=== PATIENT | female | born 1965 | race Caucasian/White ===

== ENCOUNTER 2017-03-21 12:19 | Emergency (ER) | payer BC, SELFPAY ==
[2017-03-21 13:19] LABS: #Eosinphils 0.1 thou/uL (0.0-0.7); #Lymphocytes 1.7 thou/uL (1.20-3.40); #Monocytes 0.4 thou/uL (0.11-0.59); %Basophils 0.2 % (0.0-1.0); %Eosinophils 1.1 % (0.0-10.0); %Lymphocytes 33.2 % (21.0-51.0); %Monocytes 6.7 % (0.0-10.0); %Neutrophils 58.7 % (42.0-75.0); Hemoglobin 14.5 g/dL (12.0-16.0); Mean Corpuscular HGB CONC 33.4 g/dL (32.0-36.0); Mean Corpuscular Hemoglobin 31.5 pg (27.0-31.0); Mean Corpuscular Volume 94.4 fl (81.0-99.0); Mean Platelet Volume 7.4 fL (7.4-10.4); Platelet Count 245 thou/uL (130-400); RBC Distribution Width 12.7 % (11.5-14.5); Red Blood Cell (RBC) Count 4.61 mill/uL (4.20-5.40); White Blood Cell (WBC) Count 5.2 thou/uL (4.8-10.8)
[2017-03-21 13:41] LABS: ALT (SGPT) 19 U/L (8-55); AST (SGOT) 17 U/L (5-34); Albumin 4.6 g/dL (3.5-5.0); Alkaline Phosphatase 88 U/L (40-150); Anion Gap 15 mmol/L (10-20); BUN (Urea Nitrogen) 17 mg/dL (9.8-20.1); Bilirubin, Total 0.7 mg/dL (0.2-1.2); Calc. Creatinine Clearance 0 mL/min (70-130); Calcium 9.7 mg/dL (7.8-10.44); Carbon Dioxide 24 mmol/L (22-29); Chloride 102 mmol/L (98-107); Estimated GFR-MDRD 58; Globulin 3.1 g/dL (2.4-3.5); Glucose 98 mg/dL (70-105); Potassium 4.6 mmol/L (3.5-5.1); Protein, Total 7.7 g/dL (6.0-8.3); Sodium 136 mmol/L (136-145)
[2017-03-21 14:40] LABS: Bilirubin Negative (Negative); Blood, Urine Small (Negative); Clarity TURBID (Clear); Glucose, Urine (Dipstick) Negative (Negative); Leukocyte Large (Negative); Nitrite Positive (Negative); Protein, Urine (Dipstick) 30 mg/dL (Neg-Trace); Specific Gravity, Urine 1.029 (1.002-1.036); Urobilinogen 0.2 mg/dL (0.2-1.0); pH, Urine 5.5 (5.0-9.0)
[2017-03-21 14:42] LABS: Bacteria/HPF 4+ HPF (None Seen); Hyaline Casts/LPF 0-3 HYALINE CAST LPF (0-3 Hyaline); Pathc Cast-AUWi Flag 0.94 (0-2.49)
[2017-03-21 14:46] LABS: Yeast-AUWi Flag 110.1 (0-25.0)
[2017-03-21 14:59] LABS: Yeast-All Forms None Seen HPF (None Seen)
[2017-03-21] MEDS ORDERED: Ondansetron ODT 4 MG TAB ONE (16:18)
== END 2017-03-21 16:20 | disposition home or self-care (01) ==
LOC: ERS 12:19
DX: N39.0 Urinary tract infection, site not specified (principal); F41.9 Anxiety disorder, unspecified; F32.9 Major depressive disorder, single episode, unspecified; I10 Essential (primary) hypertension; F17.210 Nicotine dependence, cigarettes, uncomplicated
CPT/HCPCS: 36415; 80053; 81003; 81015; 85025; 87804; 99283; Q0162

== ENCOUNTER 2017-08-20 12:23 | Emergency (ER) | payer BC | END 2017-08-20 13:03 | disposition home or self-care (01) | LOC: SCSER 12:23 | DX: F11.20 Opioid dependence, uncomplicated (principal); Z71.6 Tobacco abuse counseling; I12.9 Hypertensive chronic kidney disease with stage 1 through stage 4 chronic kidney disease, or unspecified chronic kidney disease; N18.9 Chronic kidney disease, unspecified; F43.10 Post-traumatic stress disorder, unspecified; F41.9 Anxiety disorder, unspecified; F32.9 Major depressive disorder, single episode, unspecified; F17.210 Nicotine dependence, cigarettes, uncomplicated | CPT/HCPCS: 99406 ==

== ENCOUNTER 2020-05-08 08:58 | Inpatient (IN) | payer BC, SELFPAY ==
[2020-05-08] MEDS ORDERED: Lorazepam 2 MG/ML VIAL ONE (09:37)
[2020-05-08 09:47] LABS: #Basophils 0.1 thou/uL (0.0-0.2); #Eosinphils 0.1 thou/uL (0.0-0.7); #Lymphocytes 2.1 thou/uL (1.20-3.40); #Monocytes 0.9 thou/uL (0.11-0.59); #Neutrophils 9.6 thou/uL (1.40-6.50); %Basophils 0.5 % (0.0-1.0); %Eosinophils 0.5 % (0.0-10.0); %Lymphocytes 16.3 % (21.0-51.0); %Neutrophils 75.7 % (42.0-75.0); Hemoglobin 12.1 g/dL (12.0-16.0); Mean Corpuscular Volume 84.5 fL (78.0-98.0); Platelet Count 302 thou/uL (130-400); RBC Distribution Width 14.8 % (11.5-14.5); Red Blood Cell (RBC) Count 4.48 mill/uL (4.20-5.40); White Blood Cell (WBC) Count 12.7 thou/uL (4.8-10.8)
[2020-05-08 10:09] LABS: ALT (SGPT) 19 U/L (8-55); AST (SGOT) 30 U/L (5-34); Albumin 4.4 g/dL (3.5-5.0); Alkaline Phosphatase 105 U/L (40-110); Anion Gap 23 mmol/L (10-20); BUN (Urea Nitrogen) 57 mg/dL (9.8-20.1); Bilirubin, Total 0.6 mg/dL (0.2-1.2); Calc. Creatinine Clearance 0 mL/min (70-130); Calcium 8.3 mg/dL (7.8-10.44); Carbon Dioxide 25 mmol/L (22-29); Chloride 92 mmol/L (98-107); Globulin 3.4 g/dL (2.4-3.5); Glucose 102 mg/dL (70-105); Potassium 4.3 mmol/L (3.5-5.1); Protein, Total 7.8 g/dL (6.0-8.3); Sodium 136 mmol/L (136-145)
--- NOTE | 2020-05-08 11:19 | RAD ---
CHEST 1 VIEW: HISTORY: Dyspnea. COMPARISON: 04/18/2015 exam. FINDINGS: Heart size is upper limits of normal. Mediastinal structures are unremarkable. Lungs are clear of a ny infiltrative process. There are no signs of failure. IMPRESSION: No active intrathoracic disease. POS: JUAN MANUEL
[2020-05-08 11:25] LABS: Lactic Acid 0.9 mmol/L (0.5-2.2)
[2020-05-08 11:37] LABS: Acetaminophen Less than 6.0 mcg/mL (10.0-30.0); Alcohol Less than 10 mg/dL (Less than 10); Salicylate Less than 8.0 mg/dL (15.0-30.0)
--- NOTE | 2020-05-08 11:37 | ULT ---
RENAL ULTRASOUND: HISTORY: Renal failure. FINDINGS: Real-time imaging of the right and left kidneys was performed. The right kidney measures 11.2 and th e left kidney 11.3 cm in size. No cyst, mass, or obstruction. Bladder region is unremarkable. Exam is limited due to body habitus. IMPRESSION: 1. Unremarkable renal ultrasound. 2. Incidental note made of fatty change of the liver. POS: JUAN MANUEL
[2020-05-08] MEDS ORDERED: Acetaminophen 650 MG Suppository PR PRN (11:46)
[2020-05-08] MEDS ORDERED: Lorazepam 2 MG/ML VIAL SLOW IVP PRN (11:48)
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
[2020-05-08] MEDS ORDERED: Sodium Chloride 0.9% 1,000 ML IV SCH (12:15)
--- NOTE | 2020-05-08 12:57 | CON ---
DATE OF CONSULTATION: 05/08/2020 CONSULTING PHYSICIAN: Joann Chacko PA-C. REASON FOR CONSULTATION: Acute kidney injury. REASON FOR ADMISSION: Anxiety. HISTORY OF PRESENT ILLNESS: This is a 55-year-old female with history of anxiety, hypertension, and PTSD, came to the hospital with anxiety and tremor. She was found to have acute kidney injury. She had kidney issues in the past, but not have regular followup. No fever or chills. No nausea or vomiting. PAST MEDICAL HISTORY: Positive for hypertension, anxiety, and PTSD. PAST SURGICAL HISTORY: Bilateral knee replacement, bilateral shoulder surgery, ablation, bladder sling surgery, requiring orthopedic surgery. HOME MEDICATIONS: Reviewed. ALLERGIES: NO KNOWN DRUG ALLERGIES. SOCIAL HISTORY: She smokes one pack per day. No alcohol or drug abuse. FAMILY HISTORY: Positive for diabetes. REVIEW OF SYSTEMS: CONSTITUTIONAL: Negative for weight loss or gain, ability to conduct usual activities. SKIN: Negative for rash, itching. EYES: Negative for double vision, pain. ENT/MOUTH: Negative for nose bleeding, neck stiffness, pain, tenderness. CARDIOVASCULAR: Negative for palpitations, dyspnea on exertion, orthopnea. RESPIRATORY: Negative for shortness of breath, wheezing, cough, hemoptysis, fever or night sweats. GASTROINTESTINAL: Negative for poor appetite, abdominal pain, heartburn, nausea, vomiting, constipation, or diarrhea. GENITOURINARY: Negative for urgency, frequency, dysuria, nocturia. MUSCULOSKELETAL: Negative for pain, swelling. NEUROLOGIC/PSYCHIATRIC: Negative for anxiety, depression. ALLERGY/IMMUNOLOGIC: Negative for skin rash, bleeding tendency. PHYSICAL EXAMINATION: GENERAL: This is an obese female, in no apparent distress. VITAL SIGNS: Reviewed. HEENT: Atraumatic and normocephalic. Oral mucosa moist. NECK: Supple. CV: S1 and S2, rate and rhythm regular . RESPIRATORY: Clear. MUSCULOSKELETAL: No tenderness. No edema. DERMATOLOGIC: No skin rash. NEUROLOGIC: Alert and awake. PSYCHIATRIC: Mood and affect normal LABORATORY DATA: Hemoglobin 12.1. Potassium is 4.3, BUN is 57, creatinine is 8.6. ASSESSMENT AND PLAN: 1. Acute kidney injury on chronic kidney disease stage 4 versus worsening of the chronic kidney disease, baseline not available. Plan is to start hydration. Avoid nephrotoxins. Renally dose the medications. We will check renal ultrasound and monitor labs. 2. History of hypertension. 3. Morbid obesity. 4. Edema. 5. Mild anemia. I will check chronic kidney disease labs. Check renal ultrasound. Continue hydration. We will follow. Thank you for the consult. Job ID: [id number]
[2020-05-08] MEDS ORDERED: Lorazepam 1 MG TAB ONE (13:52)
[2020-05-08] MEDS: Sodium Chloride 0.9% 1,000 ML IV SCH ×2 (13:58→20:16)
[2020-05-08] MEDS: Lorazepam 1 MG TAB PO PRN ×3 (13:59→21:43)
[2020-05-08 14:03] LABS: Bilirubin Negative (Negative); Blood, Urine 1+ (Negative); Clarity Extra Turbid (Clear); Glucose, Urine (Dipstick) Normal (Negative); Ketone, Urine Negative (Negative); Leukocyte 500 Leu/uL (Negative); Nitrite Negative (Negative); Protein, Urine (Dipstick) 70 mg/dL (Neg-Trace); Specific Gravity, Urine 1.016 (1.002-1.036); Squamous Epithelial Greater than 50 HPF (0-3); Urobilinogen Normal mg/dL (Less than 2); WBC/HPF Greater than 50 HPF (0-3); pH, Urine 5.5 (5.0-9.0)
[2020-05-08 14:04] LABS: Bacteria/HPF 3+ HPF (None Seen)
[2020-05-08] MEDS: Heparin 5,000 UNITS/ML VIAL SC SCH ×2 (15:00→20:14)
[2020-05-08 15:09] LABS: ANA Symphony (Qualitative) Negative (Negative); ANA Symphony (Quantitative) 0.3 Ratio (< 0.7 Negative); dsDNA IgG Antibody Less than 0.5 IU/mL (<10 Negative)
[2020-05-08 17:07] VITALS: BMI 46.1
[2020-05-08 19:28] LABS: Bilirubin Negative (Negative); Blood, Urine 1+ (Negative); Clarity Clear (Clear); Glucose, Urine (Dipstick) Normal (Negative); Ketone, Urine Negative (Negative); Leukocyte Negative Leu/uL (Negative); Nitrite Negative (Negative); Protein, Urine (Dipstick) 50 mg/dL (Neg-Trace); RBC/HPF 0-3 HPF (0-3); Specific Gravity, Urine 1.017 (1.002-1.036); Squamous Epithelial 0-3 HPF (0-3); Urobilinogen Normal mg/dL (Less than 2); WBC/HPF 0-3 HPF (0-3); pH, Urine 5.5 (5.0-9.0)
[2020-05-08 19:40] LABS: Bacteria/HPF 1+ HPF (None Seen)
[2020-05-08 19:41] LABS: Amphetamine Not Detected (NotDetected); Barbiturates Screen Not Detected (NotDetected); Benzodiazepine Screen Detected (NotDetected); Cocaine Metabolite Screen Not Detected (NotDetected); Medtox Control Line Valid? VALID (VALID); Medtox Reader # READER 4; Methadone Not Detected (NotDetected); Methamphetamine Not Detected (NotDetected); Opiate Screen Detected (NotDetected); Oxycodone Screen Not Detected (NotDetected); Phencyclidine (PCP) Not Detected (NotDetected); THC/Cannabinoid Screen Not Detected (NotDetected); Tricyclic Screen Detected (NotDetected); Urine Culture Reflex Yes Yes
[2020-05-08 19:56] LABS: Potassium, Urine 34.3 mmol/L
[2020-05-08] MEDS: Acetaminophen 325 MG TAB PO PRN (20:13)
[2020-05-08 22:23] LABS: SARS-CoV-2 PCR by NAA Not Detected (NotDetected)
[2020-05-08] MEDS ORDERED: Zolpidem Tartrate 5 MG TAB PO SCH (22:30)
[2020-05-09] MEDS: Sodium Chloride 0.9% 1,000 ML IV SCH ×5 (00:21→16:58)
[2020-05-09] MEDS: Lorazepam 1 MG TAB PO PRN ×5 (02:43→20:20)
[2020-05-09] MEDS: Acetaminophen 325 MG TAB PO PRN ×4 (02:43→20:30)
[2020-05-09] MEDS: traMADol HCl 50 MG TAB PO PRN ×2 (06:35→14:50)
[2020-05-09 09:13] LABS: #Eosinphils 0.1 thou/uL (0.0-0.7); #Lymphocytes 1.6 thou/uL (1.20-3.40); #Monocytes 0.5 thou/uL (0.11-0.59); #Neutrophils 4.4 thou/uL (1.40-6.50); %Basophils 0.7 % (0.0-1.0); %Eosinophils 1.1 % (0.0-10.0); %Lymphocytes 23.4 % (21.0-51.0); %Monocytes 7.8 % (0.0-10.0); Hemoglobin 11.2 g/dL (12.0-16.0); Mean Corpuscular HGB CONC 32.5 g/dL (32.0-36.0); Mean Corpuscular Hemoglobin 27.9 pg (27.0-31.0); Mean Corpuscular Volume 85.6 fL (78.0-98.0); Mean Platelet Volume 8.1 fL (7.4-10.4); Platelet Count 233 thou/uL (130-400); RBC Distribution Width 14.6 % (11.5-14.5); Red Blood Cell (RBC) Count 4.02 mill/uL (4.20-5.40); White Blood Cell (WBC) Count 6.6 thou/uL (4.8-10.8)
[2020-05-09 09:35] LABS: Anion Gap 13 mmol/L (10-20); BUN (Urea Nitrogen) 45 mg/dL (9.8-20.1); Calc. Creatinine Clearance 39 mL/min (70-130); Calcium 7.9 mg/dL (7.8-10.44); Carbon Dioxide 27 mmol/L (22-29); Chloride 103 mmol/L (98-107); Glucose 100 mg/dL (70-105); Potassium 4.7 mmol/L (3.5-5.1); Sodium 138 mmol/L (136-145)
[2020-05-09] MEDS ORDERED: Metoclopramide HCl 10 MG TAB PO SCH (10:00)
[2020-05-09] MEDS ORDERED: diphenhydrAMINE 12.5 MG/5 ML UDCUP PO SCH (10:00)
--- NOTE | 2020-05-09 10:26 | PDOC.HOSPP ---
- Subjective Encounter Date: 05/09/20 Encounter Time: 08:00 Subjective: Patient states she is feeling better this morning. Denies overnight events. Reports she still has a frontal headache and the ativan is helping with her anxiety. - Objective Vital Signs & Weight: Vital Signs (12 hours) Temp Pulse Resp BP BP BP Pulse Ox 05/09/20 08:00 97.7 F 89 20 136/87 95 05/09/20 06:03 97 05/09/20 05:36 87 L 05/09/20 04:55 98.1 F 87 14 166/100 H 96 05/09/20 00:20 98.6 F 87 14 127/71 97 Weight Weight 141.793 kg I&O: 05/08/20 05/09/20 05/10/20 06:59 06:59 06:59 Intake Total 3322 Balance 3322 Result Diagrams: 05/09/20 08:50 05/09/20 08:50 Hospitalist ROS - Review of Systems Constitutional: denies: fever, chills, sweats, weakness, malaise, other Eyes: denies: pain, vision change, conjunctivae inflammation, eyelid inflammation, redness, other ENT: denies: ear pain, ear discharge, nose pain, nose discharge, nose congestion, mouth pain, mouth swelling, throat pain, throat swelling, other Respiratory: denies: cough, dry, shortness of breath, hemoptysis, SOB with excertion, pleuritic pain, sputum, wheezing, other Cardiovascular: denies: chest pain, palpitations, orthopnea, paroxysmal noc. dyspnea, edema, light headedness, other Gastrointestinal: denies: nausea, vomiting, abdominal pain, diarrhea, constipation, melena, hematochezia, other Genitourinary: denies: dysuria, frequency, incontinence, hematuria, retention, other Musculoskeletal: denies: neck pain, shoulder pain, arm pain, back pain, hand pain, leg pain, foot pain, other Skin: denies: rash, lesions, winnie, bruising, other Neurological: reports: other (reports frontal headache) - Medication Medications: Active Medications Generic Name Dose Route Start Last Admin Trade Name Freq PRN Reason Stop Dose Admin Acetaminophen 650 mg 05/08/20 11:46 05/09/20 06:35 Acetaminophen 325 Mg Tab PO 650 mg Q4H PRN Administration Headache/Fever/Mild Pain (1-3) Heparin Sodium (Porcine) 5,000 units 05/08/20 15:00 05/08/20 20:14 Heparin 5,000 Units/Ml Vial SC 5,000 units TID LORI Administration Sodium Chloride 1,000 mls @ 200 mls/hr 05/08/20 13:55 05/09/20 05:23 Normal Saline 0.9% IV 1,000 mls .Q5H LORI Administration Lorazepam 1 mg 05/08/20 13:52 05/09/20 06:35 Lorazepam 1 Mg Tab PO 1 mg Q4H PRN Administration Anxiety/Agitation Tramadol HCl 50 mg 05/09/20 05:23 05/09/20 06:35 Tramadol Hcl 50 Mg Tab PO 50 mg Q6H PRN Administration Moderate Pain (4-6) Hospitalist Exam Vitals: Vital Signs (12 hours) Temp Pulse Resp BP BP BP Pulse Ox 05/09/20 08:00 97.7 F 89 20 136/87 95 05/09/20 06:03 97 05/09/20 05:36 87 L 05/09/20 04:55 98.1 F 87 14 166/100 H 96 05/09/20 00:20 98.6 F 87 14 127/71 97 Weight Weight 141.793 kg General Appearance: NAD, awake alert Eye: PERRL ENT: normocephalic atraumatic Neck: supple, no JVD Heart: RRR Respiratory: normal chest expansion Gastrointestinal: soft, non-tender Extremities: no edema Skin: normal turgor Neurological: no focal deficits Musculoskeletal: normal tone Psychiatric: normal affect, A&O x 3 Hosp A/P (1) Acute renal failure Status: Acute (2) Anxiety Code(s): F41.9 - ANXIETY DISORDER, UNSPECIFIED Status: Chronic (3) Leukocytosis Code(s): D72.829 - ELEVATED WHITE BLOOD CELL COUNT, UNSPECIFIED Status: Acute (4) Hypertension Code(s): I10 - ESSENTIAL (PRIMARY) HYPERTENSION Status: Chronic (5) Sinus headache Code(s): R51.9 - HEADACHE, UNSPECIFIED Status: Acute - Plan Plan: 55-year-old female with a history of anxiety, hypertension, PTSD presents with anxiety attack and full body tremor found to be in acute renal failure of unknown etiology. Acute renal failure Dr. Rogel is following BUN/CR is improving today after hydration Renal U/S unremarkable Continue IV fluids Repeat labs Leukocytosis Resolved; Urine culture is pending Anxiety PTSD Continue Ativan as needed Continue home Zoloft, Seroquel Hypertension We will hold home lisinopril in setting of ROSANA. Headache Patient c/o of a frontal headache Will order Flonase One dose of benadryl/reglan to see if it helps DVT prophylaxisSQ heparin Full code Case discussed with attending physician, Dr. Izquierdo
[2020-05-09] MEDS: Heparin 5,000 UNITS/ML VIAL SC SCH ×3 (10:57→20:22)
--- NOTE | 2020-05-09 17:09 | PRG ---
DATE OF SERVICE: 05/09/2020 SUBJECTIVE: Patient was seen and examined at bedside and overnight events noted. Patient denies any shortness of breath or chest pain or palpitation. No history of nausea or vomiting or diarrhea or fever or chills or cramps. OBJECTIVE: GENERAL: This is a well-built female, in no apparent distress. VITAL SIGNS: Temperature 98.1. Heart rate 86. Respiratory rate 18. Blood pressure 137/79. HEENT: Atraumatic, normocephalic. Oral mucosa is moist. NECK: Supple. CARDIOVASCULAR: S1, S2 heard. Rate and rhythm regular. RESPIRATORY: Clear to auscultation. GASTROINTESTINAL: Abdomen is soft. MUSCULOSKELETAL: No tenderness. No edema. DERMATOLOGIC: No skin rash. NEUROLOGIC: Alert and awake and oriented x3. No focal neurologic deficits. Moving all the extremities. PSYCHIATRIC: Mood and affect normal. LABORATORY DATA: Potassium 4.7, BUN is 45, and creatinine is 3.6. ASSESSMENT AND PLAN: 1. Acute kidney injury on chronic kidney disease, stage 4. Renal function with much improvement and continue on hydration. 2. Edema, controlled. 3. Hypertension. 4. Morbid obesity. 5. Mild anemia. 6. Vitamin D deficiency. We will start on vitamin D. ADONIS screen is negative. Urine with no nephrotic proteinuria. We will follow. Continue hydration. Avoid nephrotoxins and we will follow renal function. Job ID: [id number]
[2020-05-09] MEDS ORDERED: FLU VACC QS2020-21(6MOS UP)/PF 60 MCG/0.5 ML SYRINGE IM ONE (17:30)
[2020-05-09] MEDS: Zolpidem Tartrate 5 MG TAB PO SCH (20:20)
[2020-05-10] MEDS: traMADol HCl 50 MG TAB PO PRN ×2 (00:21→14:58)
[2020-05-10] MEDS: Lorazepam 1 MG TAB PO PRN ×6 (00:22→21:02)
[2020-05-10] MEDS: Sodium Chloride 0.9% 1,000 ML IV SCH ×3 (00:23→21:01)
[2020-05-10 05:25] LABS: #Eosinphils 0.1 thou/uL (0.0-0.7); #Lymphocytes 2.2 thou/uL (1.20-3.40); #Monocytes 0.5 thou/uL (0.11-0.59); #Neutrophils 3.4 thou/uL (1.40-6.50); %Basophils 0.6 % (0.0-1.0); %Eosinophils 1.6 % (0.0-10.0); %Lymphocytes 35.2 % (21.0-51.0); %Monocytes 8.1 % (0.0-10.0); %Neutrophils 54.6 % (42.0-75.0); Hemoglobin 10.7 g/dL (12.0-16.0); Mean Corpuscular HGB CONC 31.7 g/dL (32.0-36.0); Mean Corpuscular Hemoglobin 27.2 pg (27.0-31.0); Mean Corpuscular Volume 85.6 fL (78.0-98.0); Mean Platelet Volume 7.6 fL (7.4-10.4); Platelet Count 249 thou/uL (130-400); RBC Distribution Width 14.6 % (11.5-14.5); Red Blood Cell (RBC) Count 3.95 mill/uL (4.20-5.40); White Blood Cell (WBC) Count 6.1 thou/uL (4.8-10.8)
[2020-05-10 05:48] LABS: Anion Gap 13 mmol/L (10-20); BUN (Urea Nitrogen) 27 mg/dL (9.8-20.1); Calc. Creatinine Clearance 88 mL/min (70-130); Calcium 7.9 mg/dL (7.8-10.44); Carbon Dioxide 25 mmol/L (22-29); Chloride 104 mmol/L (98-107); Glucose 92 mg/dL (70-105); Potassium 4.3 mmol/L (3.5-5.1); Sodium 138 mmol/L (136-145)
--- NOTE | 2020-05-10 07:30 | PDOC.HOSPP ---
- Subjective Encounter Date: 05/10/20 Encounter Time: 08:40 Subjective: Patient laying in bed watching TV, alert and oriented. States she didn't sleep well due to almost pulling her IV out of her right hand, IV is still in place and no sign of swelling noted. Reports she still has a frontal headache, requesting something for pain and requests Ativan for anxiety. Patient states she takes Lisinopril 10mg for HTN at home, discussed resuming home medication for blood pressure. - Objective Vital Signs & Weight: Vital Signs (12 hours) Temp Pulse Resp BP Pulse Ox 05/10/20 04:09 97 05/09/20 20:00 98.1 F 84 20 140/83 97 Weight Weight 312 lb 9.6 oz I&O: 05/09/20 05/10/20 05/11/20 06:59 06:59 06:59 Intake Total 3322 Balance 3322 Result Diagrams: 05/10/20 05:19 05/10/20 05:19 Hospitalist ROS - Review of Systems Constitutional: denies: fever, chills, sweats, weakness, malaise Eyes: denies: pain, vision change, conjunctivae inflammation, eyelid inflammation, redness ENT: denies: ear pain, ear discharge, nose pain, nose discharge, nose congestion, mouth pain, mouth swelling, throat pain, throat swelling Respiratory: denies: cough, dry, shortness of breath, hemoptysis, SOB with excertion, pleuritic pain, sputum, wheezing Cardiovascular: denies: chest pain, palpitations, orthopnea, paroxysmal noc. dyspnea, edema, light headedness Gastrointestinal: reports: nausea. denies: vomiting, abdominal pain, diarrhea, constipation, melena, hematochezia Genitourinary: denies: dysuria, frequency, incontinence, hematuria, retention Musculoskeletal: denies: neck pain, shoulder pain, arm pain, back pain, hand pain, leg pain, foot pain Skin: denies: rash, lesions, winnie, bruising Neurological: reports: other (patient c/o frontal headache). denies: weakness, numbness, incoordination, change in speech, confusion, seizures All other systems reviewed; all pertinent +/- noted in HPI/Subj - Medication Medications: Active Medications Generic Name Dose Route Start Last Admin Trade Name Freq PRN Reason Stop Dose Admin Acetaminophen 650 mg 05/08/20 11:46 05/09/20 20:30 Acetaminophen 325 Mg Tab PO 650 mg Q4H PRN Administration Headache/Fever/Mild Pain (1-3) Heparin Sodium (Porcine) 5,000 units 05/08/20 15:00 05/09/20 20:22 Heparin 5,000 Units/Ml Vial SC 5,000 units TID LORI Administration Sodium Chloride 1,000 mls @ 100 mls/hr 05/09/20 16:45 05/10/20 00:23 Normal Saline 0.9% IV 1,000 mls .Q10H LORI Administration Lorazepam 1 mg 05/08/20 13:52 05/10/20 04:38 Lorazepam 1 Mg Tab PO 1 mg Q4H PRN Administration Anxiety/Agitation Tramadol HCl 50 mg 05/09/20 05:23 05/10/20 00:21 Tramadol Hcl 50 Mg Tab PO 50 mg Q6H PRN Administration Moderate Pain (4-6) Zolpidem Tartrate 10 mg 05/09/20 21:00 05/09/20 20:20 Zolpidem Tartrate 5 Mg Tab PO 10 mg HS LORI Administration Hospitalist Exam Vitals: Vital Signs (12 hours) Temp Pulse Resp BP Pulse Ox 05/10/20 04:09 97 05/09/20 20:00 98.1 F 84 20 140/83 97 Weight Weight 312 lb 9.6 oz General Appearance: NAD, awake alert Eye: PERRL ENT: normocephalic atraumatic, moist mucosa Neck: supple, symmetric, no JVD, no lymphadenopathy Heart: RRR, normal peripheral pulses Respiratory: CTAB, normal chest expansion, no tachypnea Gastrointestinal: soft, non-tender, normal bowel sounds Extremities: no edema Skin: normal turgor, no rashes Neurological: cranial nerve grossly intact, normal sensation to touch, no weakness, no focal deficits, no new deficit Musculoskeletal: normal tone Psychiatric: normal affect, A&O x 3 Hosp A/P (1) Acute renal failure Status: Acute (2) Leukocytosis Code(s): D72.829 - ELEVATED WHITE BLOOD CELL COUNT, UNSPECIFIED Status: Acute (3) Anxiety Code(s): F41.9 - ANXIETY DISORDER, UNSPECIFIED Status: Chronic (4) Hypertension Code(s): I10 - ESSENTIAL (PRIMARY) HYPERTENSION Status: Chronic (5) Sinus headache Code(s): R51.9 - HEADACHE, UNSPECIFIED Status: Acute - Plan Plan: 55-year-old female with a history of anxiety, hypertension, PTSD presents with anxiety attack and full body tremor found to be in acute renal failure of unknown etiology. Acute renal failure -Dr. Rogel is following -BUN/CR is improving today after hydration -Renal U/S unremarkable -Continue IV fluids -Repeat labs Leukocytosis -Resolved -Urine culture is pending Anxiety PTSD Continue Ativan as needed Continue home Zoloft, Seroquel Hypertension -Resume Lisinopril 10mg once daily due to improvement in kidney function. Headache -Patient c/o of a frontal headache, states it comes and goes. -Flonase ordered -Tramadol and Tylenol ordered for pain DVT prophylaxisSQ heparin Full code Case discussed with attending physician, Dr. Izquierdo
[2020-05-10] MEDS: Acetaminophen 325 MG TAB PO PRN ×3 (08:35→20:36)
[2020-05-10] MEDS: Heparin 5,000 UNITS/ML VIAL SC SCH ×3 (08:35→20:35)
[2020-05-10] MEDS: Fluticasone Propionate Nasal Spray 16 gm Bottle NASAL SCH (08:53)
[2020-05-10] MEDS: Ondansetron PF 4 MG/2 ML Vial IVP PRN ×2 (08:56→14:57)
[2020-05-10] MEDS: Lisinopril 10 MG TAB PO SCH (08:57)
--- NOTE | 2020-05-10 13:52 | PRG ---
DATE OF SERVICE: 05/10/2020 SUBJECTIVE: Patient was seen and examined at bedside and overnight events noted. Patient denies any shortness of breath or chest pain or palpitation. No history of nausea or vomiting or diarrhea or fever or chills or cramps. OBJECTIVE: GENERAL: This is a well built female, in no apparent distress. VITAL SIGNS: Temperature 98.1, pulse 67, . HEENT: Atraumatic, normocephalic. Oral mucosa is moist. NECK: Supple. CARDIOVASCULAR: S1, S2 heard. Rate and rhythm regular. RESPIRATORY: Clear to auscultation. GASTROINTESTINAL: Abdomen is soft. MUSCULOSKELETAL: No tenderness. No edema. DERMATOLOGIC: No skin rash. NEUROLOGIC: Alert and awake and oriented x3. No focal neurologic deficits. Moving all the extremities. PSYCHIATRIC: Mood and affect normal. LABORATORY DATA: Potassium 4.3, BUN is 27, creatinine is 1.66. ASSESSMENT AND PLAN: 1. Acute kidney injury on chronic kidney stage, 4. Labs are much better. 2. Slight edema. 3. Hypertension. 4. Morbid obesity. 5. Mild anemia. 6. Vitamin D deficiency. 7. Labs are much better avoid, nephrotoxins. I will sign off. Please call back with any questions. Continue IV fluids for one more day. Job ID: [id number]
[2020-05-10] MEDS: Zolpidem Tartrate 5 MG TAB PO SCH (20:36)
[2020-05-11] MEDS: Lorazepam 1 MG TAB PO PRN ×3 (01:47→12:13)
[2020-05-11] MEDS: Acetaminophen 325 MG TAB PO PRN ×3 (01:50→12:12)
[2020-05-11 05:25] LABS: #Eosinphils 0.1 thou/uL (0.0-0.7); #Lymphocytes 2.7 thou/uL (1.20-3.40); #Monocytes 0.6 thou/uL (0.11-0.59); #Neutrophils 3.3 thou/uL (1.40-6.50); %Basophils 0.6 % (0.0-1.0); %Eosinophils 1.9 % (0.0-10.0); %Lymphocytes 40.3 % (21.0-51.0); %Monocytes 8.9 % (0.0-10.0); %Neutrophils 48.3 % (42.0-75.0); Hemoglobin 10.5 g/dL (12.0-16.0); Mean Corpuscular Hemoglobin 28.1 pg (27.0-31.0); Mean Platelet Volume 7.9 fL (7.4-10.4); Platelet Count 231 thou/uL (130-400); RBC Distribution Width 14.9 % (11.5-14.5); Red Blood Cell (RBC) Count 3.73 mill/uL (4.20-5.40); White Blood Cell (WBC) Count 6.8 thou/uL (4.8-10.8)
[2020-05-11 05:46] LABS: Anion Gap 12 mmol/L (10-20); BUN (Urea Nitrogen) 18 mg/dL (9.8-20.1); Calc. Creatinine Clearance 105 mL/min (70-130); Calcium 7.5 mg/dL (7.8-10.44); Carbon Dioxide 25 mmol/L (22-29); Chloride 106 mmol/L (98-107); Glucose 92 mg/dL (70-105); Potassium 4.1 mmol/L (3.5-5.1); Sodium 139 mmol/L (136-145)
--- NOTE | 2020-05-11 07:41 | PDOC.HOSPP ---
- Subjective Encounter Date: 05/11/20 Encounter Time: 10:00 Subjective: Patient still with some anxiety symptoms improved with Ativan. No other complaints. Ready to go home. - Objective Vital Signs & Weight: Vital Signs (12 hours) Temp Pulse Resp BP Pulse Ox 05/11/20 01:55 96 05/10/20 20:35 96 05/10/20 20:00 98.1 F 88 18 155/70 H 96 Weight Weight 312 lb 9.6 oz I&O: 05/10/20 05/11/20 05/12/20 06:59 06:59 06:59 Intake Total 1000 Balance 1000 Result Diagrams: 05/11/20 05:09 05/11/20 05:09 Hospitalist ROS - Review of Systems Constitutional: denies: fever, chills Respiratory: denies: cough, shortness of breath Cardiovascular: denies: chest pain, palpitations Gastrointestinal: denies: nausea, vomiting, abdominal pain, diarrhea, constipation Genitourinary: denies: dysuria, hematuria - Medication Medications: Active Medications Generic Name Dose Route Start Last Admin Trade Name Freq PRN Reason Stop Dose Admin Acetaminophen 650 mg 05/08/20 11:46 05/11/20 01:50 Acetaminophen 325 Mg Tab PO 650 mg Q4H PRN Administration Headache/Fever/Mild Pain (1-3) Fluticasone Propionate 1 gm 05/10/20 09:00 05/10/20 08:53 Fluticasone Propionate Nasal [place] 16 Gm Bottle NASAL Not Given DAILY LORI Heparin Sodium (Porcine) 5,000 units 05/08/20 15:00 05/10/20 20:35 Heparin 5,000 Units/Ml Vial SC 5,000 units TID LORI Administration Sodium Chloride 1,000 mls @ 50 mls/hr 05/10/20 11:44 05/10/20 21:01 Normal Saline 0.9% IV 1,000 mls .Q20H LORI Administration Lisinopril 10 mg 05/10/20 09:00 05/10/20 08:57 Lisinopril 10 Mg Tab PO 10 mg DAILY LORI Administration Lorazepam 1 mg 05/08/20 13:52 05/11/20 01:47 Lorazepam 1 Mg Tab PO 1 mg Q4H PRN Administration Anxiety/Agitation Ondansetron HCl 4 mg 05/10/20 08:37 05/10/20 14:57 Ondansetron Pf 4 Mg/2 Ml Vial IVP 4 mg Q6H PRN Administration Nausea/Vomiting Tramadol HCl 50 mg 05/09/20 05:23 05/10/20 14:58 Tramadol Hcl 50 Mg Tab PO 50 mg Q6H PRN Administration Moderate Pain (4-6) Zolpidem Tartrate 10 mg 05/09/20 21:00 05/10/20 20:36 Zolpidem Tartrate 5 Mg Tab PO 10 mg HS LORI Administration Hospitalist Exam Vitals: Vital Signs (12 hours) Temp Pulse Resp BP Pulse Ox 05/11/20 01:55 96 05/10/20 20:35 96 05/10/20 20:00 98.1 F 88 18 155/70 H 96 Weight Weight 312 lb 9.6 oz General Appearance: NAD, awake alert ENT: moist mucosa Heart: RRR, no murmur, no gallops, no rubs Respiratory: CTAB, no wheezes, no rales, no ronchi Gastrointestinal: soft, non-tender, non-distended, normal bowel sounds Extremities: no edema Psychiatric: normal affect, normal behavior, A&O x 3 Hosp A/P - Plan 55-year-old female with a history of anxiety, hypertension, PTSD presents with anxiety attack and full body tremor found to be in acute renal failure of unknown etiology. Acute renal failure -Dr. Rogel consulted, now signed off -Renal U/S unremarkable -Continued IV fluids -Repeat labs show marked improvement Leukocytosis -Resolved -Urine culture is pending Anxiety PTSD Continue Ativan as needed Continue home Zoloft, Seroquel Hypertension -Resume Lisinopril 10mg once daily due to improvement in kidney function. Headache -Patient c/o of a frontal headache, states it comes and goes. -Flonase ordered -Tramadol and Tylenol ordered for pain DVT prophylaxisSQ heparin Full code Disposition: Home today. Follow up with PCP for recheck of creatinine next week.
[2020-05-11] MEDS: Lisinopril 10 MG TAB PO SCH (08:25)
[2020-05-11] MEDS: Heparin 5,000 UNITS/ML VIAL SC SCH (08:25)
[2020-05-11] MEDS: Fluticasone Propionate Nasal Spray 16 gm Bottle NASAL SCH (08:28)
[2020-05-11] MEDS ORDERED: Ondansetron ODT 4 MG TAB PO PRN (10:41)
[2020-05-11] MEDS ORDERED: Ondansetron ODT 4 MG TAB ONE (10:42)
[2020-05-11 11:11] VITALS: BP 177/80; TEMP 98.6
--- NOTE | 2020-05-11 15:03 | PDOC.DS.DS ---
Provider Date of Admission: 05/08/20 10:55 Date of Discharge: 05/11/20 Admitting Provider: Lobo Mckeon MD Consultations: Nephrology (Dr. Rogel) Primary Care Physician: ANIYA GOYAL MD Course Hospital Course: This is a 85-year-old white female with a history of PTSD who had a panic attack and was shaking all over. In the emergency room she was found to have acute renal failure of undetermined etiology. She also had a leukocytosis however that resolved quickly with fluids; her renal failure improved with fluids also. Patient was back to her normal physical status with a markedly improved creatinine and so she is being discharged home. Pertinent Studies: RENAL ULTRASOUND: HISTORY: Renal failure. FINDINGS: Real-time imaging of the right and left kidneys was performed. The right kidney measures 11.2 and the left kidney 11.3 cm in size. No cyst, mass, or obstruction. Bladder region is unremarkable. Exam is limited due to body habitus. IMPRESSION: 1. Unremarkable renal ultrasound. 2. Incidental note made of fatty change of the liver. Resuscitation Status: 05/08/20 11:46 Resuscitation Status Routine Co-Sign Provider: Resuscitation Status: FULL: Full Resuscitation Lab Results: 05/11/20 05:09 05/11/20 05:09 Abnormal Lab Results - Last 48 hrs 05/10/20 05:19: BUN 27 H, Creatinine 1.63 H 05/10/20 05:19: RBC 3.95 L, Hgb 10.7 L, Hct 33.8 L, MCHC 31.7 L, RDW 14.6 H 05/11/20 05:09: Creatinine 1.37 H, Calcium 7.5 L 05/11/20 05:09: RBC 3.73 L, Hgb 10.5 L, Hct 31.7 L, RDW 14.9 H, Monocytes # 0.6 H Microbiology - Entire Visit 05/08/20 13:38 Urine clean catch Urine Culture - Final Vitals: Vital Signs (12 hours) Temp Pulse Resp BP BP Pulse Ox 05/11/20 08:25 146/90 H 05/11/20 08:00 98.6 F 98 18 177/80 H 97 Weight Weight 312 lb 9.6 oz Physical Exam: The patient was seen and examined on the day of discharge. Problem Assessment: Acute renal failure Leukocytosis -Resolved Anxiety PTSD Hypertension Headache resolved Plan of Treatment: Patient to be discharged home on her home medications. I will give her a few days of Ativan per her request but she needs to see her primary care doctor for any more that. She is to follow-up with her primary care doctor next week to recheck her creatinine. Time Spent in discharge related activities (mins): 32 Plan Prescriptions: Lorazepam [Ativan] 1 mg PO Q4H PRN #6 tab PRN Reason: Anxiety/Agitation Home Medications: Medication Instructions Recorded Confirmed Type Zolpidem Tartrate [Ambien] 10 mg PO HS 09/04/14 05/08/20 History Sertraline HCl [Zoloft] 25 mg PO DAILY 05/08/20 05/08/20 History Lisinopril 10 mg PO DAILY 05/10/20 05/10/20 History Lorazepam [Ativan] 1 mg PO Q4H PRN #6 tab 05/11/20 Rx Allergies: No Known Allergies Allergy (Verified 05/08/20 16:47) Activity:: Activity as Tolerated Nourishment:: Heart Healthy Diet, Low Sodium Diet Therapies:: Not Applicable Equipment/Supplies:: Not Applicable IV Therapy:: Not Applicable Referrals: ANIYA GOYAL MD [Primary Care Provider] - (Follow up BMP in 1 week) Disposition: HOME Quality CORE MEASURES:: N/A
[2020-05-14 14:15] LABS: Cytoplasmic (C-ANCA) <1:20 titer (Neg:<1:20); Myeloperoxidase AutoAbs <9.0 U/mL (0.0-9.0); Perinuclear (P-ANCA) <1:20 titer (Neg:<1:20); Proteinase-3 AutoAbs Less than 3.5 U/mL (0.0-3.5)
[2020-05-16] MEDS ORDERED: Ergocalciferol 1.25 MG(50,000 UNITS) CAP PO SCH (09:00)
== END 2020-05-11 12:34 | disposition home or self-care (01) | DRG 683 ==
LOC: ERS 08:58 → ERHOLD 10:55 → ONC 16:41
PROVIDERS: ADMIT Internal Medicine; ATTEND Emergency Medicine
DX: N17.9 Acute kidney failure, unspecified (principal); Z68.42 Body mass index [BMI] 45.0-49.9, adult; F41.9 Anxiety disorder, unspecified; F43.10 Post-traumatic stress disorder, unspecified; F17.210 Nicotine dependence, cigarettes, uncomplicated; D72.829 Elevated white blood cell count, unspecified; E86.0 Dehydration; R51.9 Headache, unspecified; Z96.653 Presence of artificial knee joint, bilateral; N18.4 Chronic kidney disease, stage 4 (severe); D64.9 Anemia, unspecified; I12.9 Hypertensive chronic kidney disease with stage 1 through stage 4 chronic kidney disease, or unspecified chronic kidney disease; E55.9 Vitamin D deficiency, unspecified; E66.01 Morbid (severe) obesity due to excess calories; Z20.822 Contact with and (suspected) exposure to COVID-19; Z79.82 Long term (current) use of aspirin
CPT/HCPCS: 36415; 71045; 76770; 80048; 80053; 80306; 80307; 81003; 81015; 82306; 82436; 82570; 83520; 83605; 83615; 83735; 83930; 83935; 83970; 84133; 84156; 84300; 85025; 86038; 86225; 86256; 87086; 87635; 96374; J1644; J2060; J2405; Q0162; U0003; U0005

== ENCOUNTER 2020-07-31 20:41 | Inpatient (IN) | payer SELFPAY ==
[2020-07-31 21:25] LABS: #Basophils 0.1 thou/uL (0.0-0.2); #Eosinphils 0.1 thou/uL (0.0-0.7); #Lymphocytes 2.6 thou/uL (1.20-3.40); #Monocytes 0.6 thou/uL (0.11-0.59); #Neutrophils 7.5 thou/uL (1.40-6.50); %Basophils 0.5 % (0.0-1.0); %Eosinophils 1.1 % (0.0-10.0); %Monocytes 5.7 % (0.0-10.0); %Neutrophils 68.7 % (42.0-75.0); Hemoglobin 12.5 g/dL (12.0-16.0); Mean Corpuscular HGB CONC 32.8 g/dL (32.0-36.0); Mean Corpuscular Hemoglobin 28.8 pg (27.0-31.0); Mean Corpuscular Volume 87.9 fL (78.0-98.0); Mean Platelet Volume 8.6 fL (7.4-10.4); Platelet Count 241 thou/uL (130-400); RBC Distribution Width 14.4 % (11.5-14.5); Red Blood Cell (RBC) Count 4.35 mill/uL (4.20-5.40); White Blood Cell (WBC) Count 10.9 thou/uL (4.8-10.8)
[2020-07-31 21:43] LABS: ALT (SGPT) 10 U/L (8-55); AST (SGOT) 12 U/L (5-34); Albumin 4.1 g/dL (3.5-5.0); Alkaline Phosphatase 86 U/L (40-110); Anion Gap 16 mmol/L (10-20); BUN (Urea Nitrogen) 16 mg/dL (9.8-20.1); Bilirubin, Total 0.6 mg/dL (0.2-1.2); CK (CPK) 55 U/L (29-168); Calc. Creatinine Clearance 0 mL/min (70-130); Calcium 9.2 mg/dL (7.8-10.44); Carbon Dioxide 28 mmol/L (22-29); Chloride 98 mmol/L (98-107); Globulin 2.4 g/dL (2.4-3.5); Glucose 138 mg/dL (70-105); Potassium 3.2 mmol/L (3.5-5.1); Protein, Total 6.5 g/dL (6.0-8.3); Sodium 139 mmol/L (136-145)
[2020-07-31 21:44] LABS: Acetaminophen Less than 6.0 mcg/mL (10.0-30.0); Alcohol Less than 10 mg/dL (Less than 10); Salicylate Less than 8.0 mg/dL (15.0-30.0)
[2020-07-31] MEDS ORDERED: Bisacodyl 10 MG SUPP PR PRN (22:43)
[2020-07-31] MEDS ORDERED: Ziprasidone 20 MG VIAL IM PRN (22:45)
[2020-07-31 22:56] LABS: Bilirubin Negative (Negative); Blood, Urine Negative (Negative); Clarity Clear (Clear); Glucose, Urine (Dipstick) Normal (Negative); Ketone, Urine Negative (Negative); Leukocyte Negative Leu/uL (Negative); Nitrite Negative (Negative); Protein, Urine (Dipstick) Negative (Neg-Trace); Specific Gravity, Urine 1.009 (1.002-1.036); Urobilinogen Normal mg/dL (Less than 2)
[2020-07-31] MEDS ORDERED: Potassium Chloride 10 MEQ in Dextrose 5%-Lactated Ringers 1,000 ML IV SCH (23:00)
[2020-07-31 23:05] LABS: Cocaine Metabolite Screen Not Detected (NotDetected); Medtox Reader # READER 1; Methamphetamine Detected (NotDetected); Phencyclidine (PCP) Not Detected (NotDetected); THC/Cannabinoid Screen Not Detected (NotDetected)
[2020-07-31 23:06] LABS: Amphetamine Not Detected (NotDetected); Barbiturates Screen Not Detected (NotDetected); Benzodiazepine Screen Not Detected (NotDetected); Medtox Control Line Valid? VALID (VALID); Methadone Not Detected (NotDetected); Opiate Screen Detected (NotDetected); Oxycodone Screen Not Detected (NotDetected); Tricyclic Screen Detected (NotDetected)
[2020-08-01 00:01] LABS: SARS-CoV-2 NAA Rapid Test Not Detected (NotDetected)
[2020-08-01 00:53] VITALS: BMI 47.2
[2020-08-01] MEDS: Lorazepam 2 MG/ML VIAL SLOW IVP PRN ×6 (01:15→23:42)
[2020-08-01] MEDS: Ondansetron PF 4 MG/2 ML Vial IVP PRN ×3 (01:25→18:37)
[2020-08-01] MEDS: Potassium Chloride 10 MEQ in Dextrose 5%-Lactated Ringers 1,000 ML IV SCH ×4 (02:01→16:52)
[2020-08-01 07:01] LABS: Mean Corpuscular HGB CONC 31.7 g/dL (32.0-36.0); Mean Corpuscular Hemoglobin 28.2 pg (27.0-31.0); Mean Corpuscular Volume 89.2 fL (78.0-98.0); Mean Platelet Volume 8.4 fL (7.4-10.4); Platelet Count 214 thou/uL (130-400); RBC Distribution Width 14.6 % (11.5-14.5); Red Blood Cell (RBC) Count 4.62 mill/uL (4.20-5.40); White Blood Cell (WBC) Count 14.6 thou/uL (4.8-10.8)
[2020-08-01 07:11] LABS: Albumin 3.7 g/dL (3.5-5.0); Anion Gap 16 mmol/L (10-20); BUN (Urea Nitrogen) 18 mg/dL (9.8-20.1); BUN/Creatinine Ratio 12.41; Calc. Creatinine Clearance 99 mL/min (70-130); Calcium 8.8 mg/dL (7.8-10.44); Carbon Dioxide 26 mmol/L (22-29); Chloride 106 mmol/L (98-107); Glucose 120 mg/dL (70-105); Potassium 4.1 mmol/L (3.5-5.1); Sodium 144 mmol/L (136-145)
[2020-08-01 07:36] LABS: Band 3 % (5-11); Lymphocytes 9 % (21-51); MDiff Complete? YES; Monocytes 3 % (0-10); Neutrophil 85 % (42-75); Platelet Morphology Comment Appears Adequate; RBC Morphology Normal
[2020-08-01] MEDS: Enoxaparin Sodium 40 MG/0.4 ML SYRINGE SC SCH (09:16)
[2020-08-01] MEDS: Famotidine 20 MG TAB PO SCH ×2 (09:25→21:34)
[2020-08-01] MEDS ORDERED: Polyethylene Glycol 3350 17 GM Packet PO SCH (10:45)
[2020-08-01] MEDS ORDERED: GoLYTELY 4,000 ml Bottle PO SCH (18:00)
[2020-08-01] MEDS ORDERED: Prevnar 13-Val Conj/PF 0.5 ML SYRINGE IM ONE (21:00)
[2020-08-01] MEDS ORDERED: hydrALAZINE 20 MG/ML VIAL SLOW IVP PRN (21:06)
[2020-08-01] MEDS ORDERED: Promethazine HCl 12.5 MG in Sodium Chloride 0.9% 50 ML IVPB SCH (21:30)
[2020-08-02] MEDS: Ondansetron PF 4 MG/2 ML Vial IVP PRN (00:59)
[2020-08-02] MEDS: Potassium Chloride 10 MEQ in Dextrose 5%-Lactated Ringers 1,000 ML IV SCH ×4 (03:29→23:47)
[2020-08-02] MEDS: Lorazepam 2 MG/ML VIAL SLOW IVP PRN ×5 (04:01→23:25)
[2020-08-02] MEDS ORDERED: Promethazine HCl 12.5 MG in Sodium Chloride 0.9% 50 ML IVPB SCH (06:00)
[2020-08-02 09:03] LABS: ALT (SGPT) 9 U/L (8-55); AST (SGOT) 15 U/L (5-34); Albumin 3.1 g/dL (3.5-5.0); Alkaline Phosphatase 76 U/L (40-110); Anion Gap 16 mmol/L (10-20); BUN (Urea Nitrogen) 12 mg/dL (9.8-20.1); Bilirubin, Total 0.9 mg/dL (0.2-1.2); Calc. Creatinine Clearance 136 mL/min (70-130); Calcium 8.8 mg/dL (7.8-10.44); Carbon Dioxide 19 mmol/L (22-29); Chloride 109 mmol/L (98-107); Globulin 2.6 g/dL (2.4-3.5); Glucose 136 mg/dL (70-105); Protein, Total 5.7 g/dL (6.0-8.3); Sodium 140 mmol/L (136-145)
[2020-08-02] MEDS: Famotidine 20 MG TAB PO SCH ×2 (09:19→21:00)
[2020-08-02] MEDS: Enoxaparin Sodium 40 MG/0.4 ML SYRINGE SC SCH (09:35)
[2020-08-02 09:49] LABS: Band 12 % (5-11); Hemoglobin 12.1 g/dL (12.0-16.0); Lymphocytes 6 % (21-51); MDiff Complete? YES; Mean Corpuscular HGB CONC 32.3 g/dL (32.0-36.0); Mean Corpuscular Hemoglobin 28.4 pg (27.0-31.0); Mean Corpuscular Volume 87.8 fL (78.0-98.0); Mean Platelet Volume 9.1 fL (7.4-10.4); Monocytes 4 % (0-10); Neutrophil 77 % (42-75); Platelet Count 157 thou/uL (130-400); Platelet Morphology Comment Appears Adequate; RBC Distribution Width 14.4 % (11.5-14.5); RBC Morphology Normal; Red Blood Cell (RBC) Count 4.28 mill/uL (4.20-5.40); White Blood Cell (WBC) Count 17.8 thou/uL (4.8-10.8)
[2020-08-02] MEDS: hydrALAZINE 25 MG TAB PO SCH ×2 (11:02→21:00)
[2020-08-02] MEDS ORDERED: Piperacillin/Tazobactam 3.375 GM in Sodium Chloride 0.9% 100 ML IVPB SCH (12:00)
[2020-08-02] MEDS: Piperacillin/Tazobactam 3.375 GM in Sodium Chloride 0.9% 100 ML IVPB SCH ×2 (15:29→21:01)
[2020-08-02] MEDS ORDERED: GoLYTELY 4,000 ml Bottle PO SCH (17:00)
[2020-08-02] MEDS ORDERED: Zolpidem Tartrate 5 MG TAB PO SCH (21:00)
[2020-08-03] MEDS: Lorazepam 2 MG/ML VIAL SLOW IVP PRN ×3 (03:48→19:14)
[2020-08-03] MEDS: Piperacillin/Tazobactam 3.375 GM in Sodium Chloride 0.9% 100 ML IVPB SCH ×4 (03:49→21:50)
[2020-08-03 06:57] LABS: #Basophils 0.1 thou/uL (0.0-0.2); #Eosinphils 0.1 thou/uL (0.0-0.7); #Monocytes 0.9 thou/uL (0.11-0.59); #Neutrophils 9.3 thou/uL (1.40-6.50); %Basophils 0.5 % (0.0-1.0); %Eosinophils 1.1 % (0.0-10.0); %Lymphocytes 16.1 % (21.0-51.0); %Monocytes 6.9 % (0.0-10.0); %Neutrophils 75.4 % (42.0-75.0); Hemoglobin 10.9 g/dL (12.0-16.0); Mean Corpuscular HGB CONC 32.8 g/dL (32.0-36.0); Mean Corpuscular Hemoglobin 29.1 pg (27.0-31.0); Mean Corpuscular Volume 88.8 fL (78.0-98.0); Mean Platelet Volume 8.3 fL (7.4-10.4); Platelet Count 198 thou/uL (130-400); RBC Distribution Width 14.3 % (11.5-14.5); Red Blood Cell (RBC) Count 3.73 mill/uL (4.20-5.40); White Blood Cell (WBC) Count 12.3 thou/uL (4.8-10.8)
[2020-08-03 07:22] LABS: Anion Gap 12 mmol/L (10-20); BUN (Urea Nitrogen) 10 mg/dL (9.8-20.1); Calc. Creatinine Clearance 130 mL/min (70-130); Calcium 7.9 mg/dL (7.8-10.44); Carbon Dioxide 26 mmol/L (22-29); Chloride 106 mmol/L (98-107); Glucose 112 mg/dL (70-105); Potassium 3.3 mmol/L (3.5-5.1); Sodium 141 mmol/L (136-145)
[2020-08-03] MEDS: Enoxaparin Sodium 40 MG/0.4 ML SYRINGE SC SCH (09:22)
[2020-08-03] MEDS ORDERED: PROPOFOL 200 MG/20 ML VIAL ONE (12:22)
[2020-08-03] MEDS ORDERED: Lidocaine 1% PF 5 ML VIAL ONE (12:22)
[2020-08-03] MEDS ORDERED: Promethazine HCl 25 MG/ML VIAL IM PRN (13:07)
[2020-08-03] MEDS ORDERED: Promethazine HCl 25 MG/ML VIAL SLOW IVP PRN (13:07)
[2020-08-03] MEDS ORDERED: Ondansetron HCl/PF 4 MG/2 ML Vial IVP PRN (13:07)
[2020-08-03] MEDS: Potassium Chloride 10 MEQ in Dextrose 5%-Lactated Ringers 1,000 ML IV SCH ×2 (14:39→17:43)
[2020-08-03] MEDS: hydrALAZINE 25 MG TAB PO SCH ×2 (14:40→21:50)
[2020-08-03] MEDS: Famotidine 20 MG TAB PO SCH ×2 (14:40→21:49)
[2020-08-03] MEDS ORDERED: Potassium Chloride 20 MEQ TAB PO SCH (18:30)
[2020-08-03] MEDS ORDERED: Zolpidem Tartrate 5 MG TAB PO SCH (21:30)
[2020-08-04] MEDS: Piperacillin/Tazobactam 3.375 GM in Sodium Chloride 0.9% 100 ML IVPB SCH ×4 (03:13→21:23)
[2020-08-04] MEDS: Lorazepam 2 MG/ML VIAL SLOW IVP PRN ×4 (03:13→19:56)
[2020-08-04] MEDS: Potassium Chloride 10 MEQ in Dextrose 5%-Lactated Ringers 1,000 ML IV SCH ×3 (04:29→17:42)
[2020-08-04 06:33] LABS: #Eosinphils 0.3 thou/uL (0.0-0.7); #Lymphocytes 2.5 thou/uL (1.20-3.40); #Monocytes 0.7 thou/uL (0.11-0.59); #Neutrophils 6.5 thou/uL (1.40-6.50); %Basophils 0.1 % (0.0-1.0); %Eosinophils 3.1 % (0.0-10.0); %Lymphocytes 25.2 % (21.0-51.0); %Monocytes 6.6 % (0.0-10.0); Mean Corpuscular HGB CONC 31.9 g/dL (32.0-36.0); Mean Corpuscular Hemoglobin 28.3 pg (27.0-31.0); Mean Corpuscular Volume 88.6 fL (78.0-98.0); Mean Platelet Volume 8.2 fL (7.4-10.4); Platelet Count 215 thou/uL (130-400); RBC Distribution Width 14.5 % (11.5-14.5); Red Blood Cell (RBC) Count 3.55 mill/uL (4.20-5.40)
[2020-08-04 06:56] LABS: Anion Gap 11 mmol/L (10-20); BUN (Urea Nitrogen) 6 mg/dL (9.8-20.1); Calc. Creatinine Clearance 142 mL/min (70-130); Calcium 7.6 mg/dL (7.8-10.44); Carbon Dioxide 25 mmol/L (22-29); Chloride 107 mmol/L (98-107); Glucose 102 mg/dL (70-105); Potassium 3.4 mmol/L (3.5-5.1); Sodium 140 mmol/L (136-145)
[2020-08-04] MEDS: hydrALAZINE 25 MG TAB PO SCH ×2 (09:15→21:20)
[2020-08-04] MEDS: Lisinopril 20 MG TAB PO SCH (09:15)
[2020-08-04] MEDS: Famotidine 20 MG TAB PO SCH ×2 (09:16→21:20)
[2020-08-04] MEDS: Enoxaparin Sodium 40 MG/0.4 ML SYRINGE SC SCH (09:17)
[2020-08-04] MEDS: Zolpidem Tartrate 5 MG TAB PO PRN (21:29)
[2020-08-05] MEDS: Lorazepam 2 MG/ML VIAL SLOW IVP PRN ×4 (01:22→20:32)
[2020-08-05] MEDS: Potassium Chloride 10 MEQ in Dextrose 5%-Lactated Ringers 1,000 ML IV SCH ×4 (02:22→22:28)
[2020-08-05] MEDS: Piperacillin/Tazobactam 3.375 GM in Sodium Chloride 0.9% 100 ML IVPB SCH ×4 (04:27→21:05)
[2020-08-05] MEDS: Lisinopril 20 MG TAB PO SCH (08:27)
[2020-08-05] MEDS: hydrALAZINE 25 MG TAB PO SCH ×2 (08:27→20:51)
[2020-08-05] MEDS: Famotidine 20 MG TAB PO SCH ×2 (08:28→20:51)
[2020-08-05] MEDS: Enoxaparin Sodium 40 MG/0.4 ML SYRINGE SC SCH (08:28)
[2020-08-05] MEDS ORDERED: Potassium Chloride 20 MEQ TAB PO SCH (09:45)
[2020-08-05] MEDS: Nystatin Cream 30 GM TUBE TOP SCH (20:48)
[2020-08-05] MEDS: Zolpidem Tartrate 5 MG TAB PO PRN (22:28)
[2020-08-06] MEDS: Potassium Chloride 10 MEQ in Dextrose 5%-Lactated Ringers 1,000 ML IV SCH ×3 (01:49→16:36)
[2020-08-06] MEDS: Lorazepam 2 MG/ML VIAL SLOW IVP PRN ×5 (03:32→20:33)
[2020-08-06] MEDS: Ondansetron PF 4 MG/2 ML Vial IVP PRN (03:37)
[2020-08-06] MEDS: Piperacillin/Tazobactam 3.375 GM in Sodium Chloride 0.9% 100 ML IVPB SCH ×4 (03:39→20:32)
[2020-08-06 08:19] LABS: Anion Gap 11 mmol/L (10-20); BUN (Urea Nitrogen) 4 mg/dL (9.8-20.1); Calc. Creatinine Clearance 129 mL/min (70-130); Calcium 7.5 mg/dL (7.8-10.44); Carbon Dioxide 25 mmol/L (22-29); Chloride 106 mmol/L (98-107); Glucose 96 mg/dL (70-105); Potassium 3.3 mmol/L (3.5-5.1); Sodium 139 mmol/L (136-145)
[2020-08-06] MEDS: Enoxaparin Sodium 40 MG/0.4 ML SYRINGE SC SCH (08:26)
[2020-08-06] MEDS: Lisinopril 20 MG TAB PO SCH (08:26)
[2020-08-06] MEDS: Famotidine 20 MG TAB PO SCH ×2 (08:26→20:29)
[2020-08-06] MEDS: hydrALAZINE 25 MG TAB PO SCH ×2 (08:27→20:30)
[2020-08-06 09:14] LABS: Band 4 % (5-11); Eosinophils 3 % (0-10); Hemoglobin 10.2 g/dL (12.0-16.0); Lymphocytes 25 % (21-51); MDiff Complete? YES; Mean Corpuscular HGB CONC 31.5 g/dL (32.0-36.0); Mean Corpuscular Volume 88.7 fL (78.0-98.0); Mean Platelet Volume 7.9 fL (7.4-10.4); Monocytes 8 % (0-10); Neutrophil 58 % (42-75); Platelet Count 287 thou/uL (130-400); Platelet Morphology Comment Appears Adequate; RBC Distribution Width 14.7 % (11.5-14.5); RBC Morphology Normal; Red Blood Cell (RBC) Count 3.66 mill/uL (4.20-5.40)
[2020-08-06] MEDS: Nystatin Cream 30 GM TUBE TOP SCH ×2 (11:53→20:31)
[2020-08-06] MEDS: Zolpidem Tartrate 5 MG TAB PO PRN (20:38)
[2020-08-07] MEDS: Lorazepam 2 MG/ML VIAL SLOW IVP PRN ×5 (00:37→22:49)
[2020-08-07] MEDS: Piperacillin/Tazobactam 3.375 GM in Sodium Chloride 0.9% 100 ML IVPB SCH ×4 (04:43→21:19)
[2020-08-07] MEDS: Potassium Chloride 10 MEQ in Dextrose 5%-Lactated Ringers 1,000 ML IV SCH ×3 (04:59→18:17)
[2020-08-07 06:57] LABS: Anion Gap 13 mmol/L (10-20); BUN (Urea Nitrogen) Less than 4 mg/dL (9.8-20.1); Calc. Creatinine Clearance 122 mL/min (70-130); Calcium 7.7 mg/dL (7.8-10.44); Carbon Dioxide 23 mmol/L (22-29); Chloride 107 mmol/L (98-107); Glucose 93 mg/dL (70-105); Potassium 3.3 mmol/L (3.5-5.1); Sodium 140 mmol/L (136-145)
[2020-08-07] MEDS: Famotidine 20 MG TAB PO SCH ×2 (08:17→20:10)
[2020-08-07] MEDS: Lisinopril 20 MG TAB PO SCH (08:17)
[2020-08-07] MEDS: hydrALAZINE 25 MG TAB PO SCH ×2 (08:17→20:10)
[2020-08-07] MEDS: Enoxaparin Sodium 40 MG/0.4 ML SYRINGE SC SCH (08:17)
[2020-08-07] MEDS: Nystatin Cream 30 GM TUBE TOP SCH ×2 (09:40→20:10)
[2020-08-07] MEDS: Ondansetron PF 4 MG/2 ML Vial IVP PRN (12:12)
[2020-08-07] MEDS ORDERED: Iopamidol-370 76% 500 ML 1 ML ONE (12:38)
[2020-08-07] MEDS: Potassium Chloride 20 MEQ in Premix Bag 1 BAG IVPB SCH ×2 (16:35)
[2020-08-07] MEDS: Zolpidem Tartrate 5 MG TAB PO PRN (21:24)
[2020-08-08] MEDS: Potassium Chloride 10 MEQ in Dextrose 5%-Lactated Ringers 1,000 ML IV SCH ×3 (03:41→19:30)
[2020-08-08] MEDS: Piperacillin/Tazobactam 3.375 GM in Sodium Chloride 0.9% 100 ML IVPB SCH ×4 (04:44→21:06)
[2020-08-08] MEDS: Lorazepam 2 MG/ML VIAL SLOW IVP PRN ×4 (04:44→21:50)
[2020-08-08] MEDS: Famotidine 20 MG TAB PO SCH ×2 (08:35→21:06)
[2020-08-08] MEDS: Lisinopril 20 MG TAB PO SCH (08:35)
[2020-08-08] MEDS: Nystatin Cream 30 GM TUBE TOP SCH ×2 (08:36→21:06)
[2020-08-08] MEDS: Enoxaparin Sodium 40 MG/0.4 ML SYRINGE SC SCH (08:36)
[2020-08-08] MEDS: hydrALAZINE 25 MG TAB PO SCH ×2 (08:36→21:07)
[2020-08-08] MEDS: Zolpidem Tartrate 5 MG TAB PO PRN (23:15)
[2020-08-09] MEDS: Potassium Chloride 10 MEQ in Dextrose 5%-Lactated Ringers 1,000 ML IV SCH ×3 (00:04→18:19)
[2020-08-09] MEDS: Lorazepam 2 MG/ML VIAL SLOW IVP PRN ×6 (02:44→22:31)
[2020-08-09] MEDS: Ondansetron PF 4 MG/2 ML Vial IVP PRN ×4 (02:45→21:40)
[2020-08-09] MEDS: Piperacillin/Tazobactam 3.375 GM in Sodium Chloride 0.9% 100 ML IVPB SCH ×4 (04:00→21:40)
[2020-08-09] MEDS: Acetaminophen 325 MG TAB PO PRN (04:58)
[2020-08-09] MEDS ORDERED: Melatonin 3 MG TAB PO SCH (05:00)
[2020-08-09 08:12] LABS: #Basophils 0.1 thou/uL (0.0-0.2); #Eosinphils 0.2 thou/uL (0.0-0.7); #Lymphocytes 2.6 thou/uL (1.20-3.40); #Monocytes 1.1 thou/uL (0.11-0.59); #Neutrophils 9.3 thou/uL (1.40-6.50); %Basophils 0.6 % (0.0-1.0); %Eosinophils 1.2 % (0.0-10.0); %Lymphocytes 19.9 % (21.0-51.0); %Monocytes 8.2 % (0.0-10.0); %Neutrophils 70.2 % (42.0-75.0); Mean Corpuscular HGB CONC 32.5 g/dL (32.0-36.0); Mean Corpuscular Hemoglobin 28.9 pg (27.0-31.0); Mean Corpuscular Volume 88.8 fL (78.0-98.0); Mean Platelet Volume 7.5 fL (7.4-10.4); Platelet Count 325 thou/uL (130-400); Red Blood Cell (RBC) Count 3.45 mill/uL (4.20-5.40); White Blood Cell (WBC) Count 13.2 thou/uL (4.8-10.8)
[2020-08-09 08:29] LABS: Anion Gap 13 mmol/L (10-20); BUN (Urea Nitrogen) 7 mg/dL (9.8-20.1); Calc. Creatinine Clearance 118 mL/min (70-130); Calcium 7.8 mg/dL (7.8-10.44); Carbon Dioxide 23 mmol/L (22-29); Chloride 105 mmol/L (98-107); Glucose 126 mg/dL (70-105); Potassium 3.7 mmol/L (3.5-5.1); Sodium 137 mmol/L (136-145)
[2020-08-09] MEDS: Enoxaparin Sodium 40 MG/0.4 ML SYRINGE SC SCH (08:38)
[2020-08-09] MEDS: Nystatin Cream 30 GM TUBE TOP SCH ×2 (08:38→20:30)
[2020-08-09] MEDS ORDERED: Promethazine HCl 25 MG in Sodium Chloride 0.9% 50 ML IVPB PRN (09:53)
[2020-08-09] MEDS: Lisinopril 20 MG TAB PO SCH (11:38)
[2020-08-09] MEDS: Loperamide HCl 2 MG CAP PO PRN ×2 (11:38→16:40)
[2020-08-09] MEDS: Famotidine 20 MG TAB PO SCH ×2 (11:40→20:29)
[2020-08-09] MEDS ORDERED: SUMAtriptan Succinate 50 MG TAB PO PRN (14:14)
[2020-08-09] MEDS ORDERED: diphenhydrAMINE 50 MG in Sodium Chloride 0.9% 50 ML IVPB SCH (14:15)
[2020-08-09] MEDS: hydrALAZINE 25 MG TAB PO SCH ×2 (14:20→20:29)
[2020-08-09] MEDS: Zolpidem Tartrate 5 MG TAB PO PRN (20:30)
[2020-08-09] MEDS: Guaifenesin DM 100-10/5 ML UDCUP PO PRN (23:17)
[2020-08-10] MEDS: Lorazepam 2 MG/ML VIAL SLOW IVP PRN ×3 (02:03→09:55)
[2020-08-10] MEDS: Potassium Chloride 10 MEQ in Dextrose 5%-Lactated Ringers 1,000 ML IV SCH (02:03)
[2020-08-10] MEDS: Piperacillin/Tazobactam 3.375 GM in Sodium Chloride 0.9% 100 ML IVPB SCH ×2 (04:05→09:59)
[2020-08-10] MEDS: Guaifenesin DM 100-10/5 ML UDCUP PO PRN (05:15)
[2020-08-10] MEDS: Ondansetron PF 4 MG/2 ML Vial IVP PRN ×2 (05:16→11:14)
[2020-08-10 06:58] LABS: #Basophils 0.1 thou/uL (0.0-0.2); #Eosinphils 0.3 thou/uL (0.0-0.7); #Lymphocytes 2.4 thou/uL (1.20-3.40); #Monocytes 0.8 thou/uL (0.11-0.59); #Neutrophils 7.3 thou/uL (1.40-6.50); %Basophils 0.5 % (0.0-1.0); %Eosinophils 2.7 % (0.0-10.0); %Monocytes 7.5 % (0.0-10.0); %Neutrophils 67.4 % (42.0-75.0); Hemoglobin 10.1 g/dL (12.0-16.0); Mean Corpuscular HGB CONC 32.1 g/dL (32.0-36.0); Mean Corpuscular Hemoglobin 28.8 pg (27.0-31.0); Mean Corpuscular Volume 89.9 fL (78.0-98.0); Mean Platelet Volume 7.3 fL (7.4-10.4); Platelet Count 327 thou/uL (130-400); RBC Distribution Width 15.3 % (11.5-14.5); Red Blood Cell (RBC) Count 3.51 mill/uL (4.20-5.40); White Blood Cell (WBC) Count 10.8 thou/uL (4.8-10.8)
[2020-08-10 07:19] LABS: Anion Gap 12 mmol/L (10-20); BUN (Urea Nitrogen) 4 mg/dL (9.8-20.1); Calc. Creatinine Clearance 115 mL/min (70-130); Calcium 7.7 mg/dL (7.8-10.44); Carbon Dioxide 22 mmol/L (22-29); Chloride 108 mmol/L (98-107); Glucose 93 mg/dL (70-105); Potassium 3.3 mmol/L (3.5-5.1); Sodium 139 mmol/L (136-145)
[2020-08-10] MEDS ORDERED: Potassium Chloride 20 MEQ in Premix Bag 1 BAG IVPB SCH (07:45)
[2020-08-10] MEDS: hydrALAZINE 25 MG TAB PO SCH (08:25)
[2020-08-10] MEDS: Enoxaparin Sodium 40 MG/0.4 ML SYRINGE SC SCH (08:27)
[2020-08-10] MEDS: Lisinopril 20 MG TAB PO SCH (08:27)
[2020-08-10] MEDS: Famotidine 20 MG TAB PO SCH (08:27)
[2020-08-10] MEDS: Acetaminophen 325 MG TAB PO PRN (08:35)
[2020-08-10 11:20] VITALS: BP 171/76; TEMP 98.9
[2020-08-10] MEDS: Nystatin Cream 30 GM TUBE TOP SCH (11:23)
== END 2020-08-10 15:04 | disposition home or self-care (01) | DRG 917 ==
LOC: ERS 20:41 → CCU 23:23 → T4-B 08-01 14:15
PROVIDERS: ADMIT Internal Medicine; ATTEND Internal Medicine
PROC: 0DBM8ZX Excision of Descending Colon, Via Natural or Artificial Opening Endoscopic, Diagnostic (ICD-10-PCS; principal; 2020-08-03)
PROC: 0DBN8ZX Excision of Sigmoid Colon, Via Natural or Artificial Opening Endoscopic, Diagnostic (ICD-10-PCS; 2020-08-03)
DX: T43.621A Poisoning by amphetamines, accidental (unintentional), initial encounter (principal); G92 Toxic encephalopathy; K55.039 Acute (reversible) ischemia of large intestine, extent unspecified; N17.9 Acute kidney failure, unspecified; T40.2X1A Poisoning by other opioids, accidental (unintentional), initial encounter; Z20.822 Contact with and (suspected) exposure to COVID-19; F41.0 Panic disorder [episodic paroxysmal anxiety]; F43.10 Post-traumatic stress disorder, unspecified; I10 Essential (primary) hypertension; F32.9 Major depressive disorder, single episode, unspecified; E87.6 Hypokalemia; I95.9 Hypotension, unspecified; K59.09 Other constipation; N18.30 Chronic kidney disease, stage 3 unspecified; F15.10 Other stimulant abuse, uncomplicated; F11.10 Opioid abuse, uncomplicated; R11.2 Nausea with vomiting, unspecified; E86.0 Dehydration; G43.909 Migraine, unspecified, not intractable, without status migrainosus; G47.00 Insomnia, unspecified; Z28.21 Immunization not carried out because of patient refusal; Z79.899 Other long term (current) drug therapy
CPT/HCPCS: 0240U; 36415; 51702; 70450; 71045; 74174; 74176; 80048; 80053; 80069; 80306; 80307; 82140; 82550; 82570; 83605; 83735; 84300; 84443; 85007; 85025; 85027; 87040; 87086; 88305; 93005; 93010; J1650; J2060; J2405; J2543; J2550; J2704; J3480; J3490; Q9967

== ENCOUNTER 2020-08-22 22:38 | Observation (INO) | payer SELFPAY ==
[2020-08-22 23:39] LABS: #Basophils 0.2 thou/uL (0.0-0.2); #Eosinphils 0.1 thou/uL (0.0-0.7); #Lymphocytes 2.2 thou/uL (1.20-3.40); #Monocytes 1.2 thou/uL (0.11-0.59); #Neutrophils 10.2 thou/uL (1.40-6.50); %Basophils 1.1 % (0.0-1.0); %Eosinophils 0.8 % (0.0-10.0); %Lymphocytes 15.8 % (21.0-51.0); %Monocytes 8.4 % (0.0-10.0); %Neutrophils 73.9 % (42.0-75.0); Mean Corpuscular HGB CONC 32.7 g/dL (32.0-36.0); Mean Corpuscular Hemoglobin 29.1 pg (27.0-31.0); Mean Platelet Volume 7.7 fL (7.4-10.4); Platelet Count 327 thou/uL (130-400); RBC Distribution Width 15.4 % (11.5-14.5); Red Blood Cell (RBC) Count 4.45 mill/uL (4.20-5.40); White Blood Cell (WBC) Count 13.8 thou/uL (4.8-10.8)
[2020-08-22 23:56] LABS: ALT (SGPT) 15 U/L (8-55); AST (SGOT) 13 U/L (5-34); Acetaminophen Less than 6.0 mcg/mL (10.0-30.0); Albumin 4.3 g/dL (3.5-5.0); Alcohol Less than 10 mg/dL (Less than 10); Alkaline Phosphatase 77 U/L (40-110); Anion Gap 18 mmol/L (10-20); BUN (Urea Nitrogen) 17 mg/dL (9.8-20.1); CK (CPK) 48 U/L (29-168); Calc. Creatinine Clearance 0 mL/min (70-130); Calcium 9.7 mg/dL (7.8-10.44); Carbon Dioxide 22 mmol/L (22-29); Chloride 102 mmol/L (98-107); Glucose 113 mg/dL (70-105); Potassium 3.8 mmol/L (3.5-5.1); Protein, Total 7.3 g/dL (6.0-8.3); Salicylate Less than 8.0 mg/dL (15.0-30.0); Sodium 138 mmol/L (136-145)
[2020-08-23] MEDS ORDERED: Lorazepam 1 MG TAB ONE (00:01)
[2020-08-23] MEDS ORDERED: Ondansetron PF 4 MG/2 ML Vial IVP PRN (02:35)
[2020-08-23] MEDS ORDERED: Acetaminophen 325 MG TAB PO PRN (02:35)
[2020-08-23] MEDS ORDERED: Ondansetron ODT 4 MG TAB PO PRN (02:35)
[2020-08-23] MEDS ORDERED: HYDROcodone/Acetaminophen 5/325 mg Tablet PO PRN (02:35)
[2020-08-23] MEDS: traZODone HCl 50 MG TAB PO PRN ×2 (04:52→23:36)
[2020-08-23] MEDS: Sodium Chloride 0.9% 1,000 ML IV SCH ×3 (04:52→21:41)
[2020-08-23 05:42] VITALS: BMI 47.1
[2020-08-23 05:45] LABS: #Basophils 0.1 thou/uL (0.0-0.2); #Eosinphils 0.1 thou/uL (0.0-0.7); #Lymphocytes 2.6 thou/uL (1.20-3.40); #Neutrophils 8.1 thou/uL (1.40-6.50); %Basophils 0.9 % (0.0-1.0); %Eosinophils 1.2 % (0.0-10.0); %Lymphocytes 21.7 % (21.0-51.0); %Monocytes 8.3 % (0.0-10.0); %Neutrophils 67.9 % (42.0-75.0); Hemoglobin 12.2 g/dL (12.0-16.0); Mean Corpuscular HGB CONC 30.9 g/dL (32.0-36.0); Mean Corpuscular Hemoglobin 27.5 pg (27.0-31.0); Mean Corpuscular Volume 88.8 fL (78.0-98.0); Mean Platelet Volume 7.8 fL (7.4-10.4); Platelet Count 259 thou/uL (130-400); RBC Distribution Width 15.3 % (11.5-14.5); Red Blood Cell (RBC) Count 4.46 mill/uL (4.20-5.40); White Blood Cell (WBC) Count 11.9 thou/uL (4.8-10.8)
[2020-08-23 06:04] LABS: Anion Gap 17 mmol/L (10-20); BUN (Urea Nitrogen) 18 mg/dL (9.8-20.1); Calc. Creatinine Clearance 84 mL/min (70-130); Calcium 8.9 mg/dL (7.8-10.44); Carbon Dioxide 23 mmol/L (22-29); Chloride 102 mmol/L (98-107); Glucose 93 mg/dL (70-105); Potassium 3.6 mmol/L (3.5-5.1); Sodium 138 mmol/L (136-145)
[2020-08-23 06:19] LABS: SARS-CoV-2 NAA Rapid Test Not Detected (NotDetected)
[2020-08-23 08:24] LABS: Bilirubin Negative (Negative); Blood, Urine Negative (Negative); Clarity Clear (Clear); Glucose, Urine (Dipstick) Negative (Negative); Ketone, Urine Negative (Negative); Leukocyte Negative (Negative); Nitrite Negative (Negative); Protein, Urine (Dipstick) Negative (Neg-Trace); Specific Gravity, Urine 1.015 (1.005-1.030); Urobilinogen 0.2 mg/dL (Less than 2)
[2020-08-23 08:25] LABS: Urine Culture Reflex No No
[2020-08-23 08:27] LABS: Amphetamine Not Detected (NotDetected); Barbiturates Screen Not Detected (NotDetected); Benzodiazepine Screen Detected (NotDetected); Cocaine Metabolite Screen Not Detected (NotDetected); Medtox Control Line Valid? VALID (VALID); Medtox Reader # READER 4; Methadone Not Detected (NotDetected); Methamphetamine Not Detected (NotDetected); Opiate Screen Detected (NotDetected); Oxycodone Screen Not Detected (NotDetected); Phencyclidine (PCP) Not Detected (NotDetected); THC/Cannabinoid Screen Not Detected (NotDetected); Tricyclic Screen Not Detected (NotDetected)
[2020-08-23 08:36] LABS: Bacteria/HPF None Seen HPF (None Seen); RBC/HPF None Seen HPF (0-3)
[2020-08-23] MEDS ORDERED: Iopamidol-370 76% 500 ML 1 ML ONE (08:46)
[2020-08-23] MEDS: Lorazepam 1 MG TAB PO PRN ×3 (09:22→21:40)
[2020-08-23] MEDS: Lisinopril 20 MG TAB PO SCH (09:23)
[2020-08-23] MEDS: Enoxaparin Sodium 40 MG/0.4 ML SYRINGE SC SCH (09:23)
[2020-08-24] MEDS: Lorazepam 1 MG TAB PO PRN (03:54)
[2020-08-24 06:04] LABS: ALT (SGPT) 13 U/L (8-55); AST (SGOT) 12 U/L (5-34); Albumin 3.6 g/dL (3.5-5.0); Alkaline Phosphatase 68 U/L (40-110); Anion Gap 13 mmol/L (10-20); BUN (Urea Nitrogen) 15 mg/dL (9.8-20.1); Bilirubin, Total 1.3 mg/dL (0.2-1.2); Calc. Creatinine Clearance 144 mL/min (70-130); Calcium 8.5 mg/dL (7.8-10.44); Carbon Dioxide 25 mmol/L (22-29); Chloride 104 mmol/L (98-107); Globulin 2.5 g/dL (2.4-3.5); Glucose 96 mg/dL (70-105); Magnesium 1.9 mg/dL (1.6-2.6); Potassium 3.7 mmol/L (3.5-5.1); Protein, Total 6.1 g/dL (6.0-8.3); Sodium 138 mmol/L (136-145)
[2020-08-24 07:59] VITALS: BP 139/87; TEMP 97.6
[2020-08-24] MEDS: Lisinopril 20 MG TAB PO SCH (08:28)
[2020-08-24] MEDS: Enoxaparin Sodium 40 MG/0.4 ML SYRINGE SC SCH (08:29)
[2020-08-24] MEDS: Sodium Chloride 0.9% 1,000 ML IV SCH (10:17)
== END 2020-08-24 10:19 | disposition home or self-care (01) ==
LOC: ERS 22:38 → SURG A 08-23 02:07
PROVIDERS: ADMIT Student in an Organized Health Care Education/Training Program; ATTEND Hospitalist
DX: N17.9 Acute kidney failure, unspecified (principal); I12.9 Hypertensive chronic kidney disease with stage 1 through stage 4 chronic kidney disease, or unspecified chronic kidney disease; N18.30 Chronic kidney disease, stage 3 unspecified; D72.829 Elevated white blood cell count, unspecified; R45.851 Suicidal ideations; Z79.899 Other long term (current) drug therapy; Z87.891 Personal history of nicotine dependence; Z20.822 Contact with and (suspected) exposure to COVID-19
CPT/HCPCS: 36415; 70450; 71045; 74177; 80048; 80053; 80306; 80307; 81001; 82550; 83735; 84443; 85025; 93005; 96372; G0378; J1650; Q9967; U0002; U0005

== ENCOUNTER 2020-12-11 17:27 | Inpatient (IN) | payer SELFPAY ==
[2020-12-11] MEDS ORDERED: Acetaminophen 325 MG TAB ONE (19:58)
[2020-12-11] MEDS ORDERED: Lorazepam 2 MG/ML VIAL ONE (19:58)
[2020-12-11] MEDS ORDERED: chlordiazePOXIDE HCl 25 MG CAP PO SCH (20:00)
[2020-12-11 21:32] LABS: #Basophils 0.1 thou/uL (0.0-0.2); #Eosinphils 0.1 thou/uL (0.0-0.7); #Lymphocytes 2.9 thou/uL (1.20-3.40); #Monocytes 2.3 thou/uL (0.11-0.59); #Neutrophils 14.5 thou/uL (1.40-6.50); %Basophils 0.5 % (0.0-1.0); %Eosinophils 0.6 % (0.0-10.0); %Lymphocytes 14.6 % (21.0-51.0); %Monocytes 11.4 % (0.0-10.0); %Neutrophils 72.9 % (42.0-75.0); Hemoglobin 13.3 g/dL (12.0-16.0); Mean Corpuscular HGB CONC 32.4 g/dL (32.0-36.0); Mean Corpuscular Hemoglobin 28.2 pg (27.0-31.0); Mean Corpuscular Volume 87.3 fL (78.0-98.0); Mean Platelet Volume 8.4 fL (7.4-10.4); Platelet Count 305 thou/uL (130-400); Red Blood Cell (RBC) Count 4.71 mill/uL (4.20-5.40); White Blood Cell (WBC) Count 19.9 thou/uL (4.8-10.8)
[2020-12-11 21:53] LABS: ALT (SGPT) 18 U/L (8-55); AST (SGOT) 26 U/L (5-34); Albumin 4.3 g/dL (3.5-5.0); Alkaline Phosphatase 83 U/L (40-110); Anion Gap 23 mmol/L (10-20); BUN (Urea Nitrogen) 43 mg/dL (9.8-20.1); Bilirubin, Total 0.5 mg/dL (0.2-1.2); Calc. Creatinine Clearance 0 mL/min (70-130); Carbon Dioxide 19 mmol/L (22-29); Chloride 102 mmol/L (98-107); Globulin 2.9 g/dL (2.4-3.5); Glucose 118 mg/dL (70-105); Potassium 4.5 mmol/L (3.5-5.1); Protein, Total 7.2 g/dL (6.0-8.3); Sodium 139 mmol/L (136-145)
[2020-12-11] MEDS ORDERED: Aspirin Chewable 81 MG TAB ONE (23:18)
[2020-12-12 02:42] LABS: SARS-CoV-2 NAA Rapid Test Not Detected (NotDetected)
[2020-12-12 04:23] VITALS: BMI 35.5
[2020-12-12] MEDS: Heparin 5,000 UNITS/ML VIAL SC SCH ×2 (09:53→21:28)
[2020-12-12] MEDS: Sodium Chloride 0.9% 1,000 ML IV SCH ×2 (09:53→16:52)
[2020-12-12 10:16] LABS: Anion Gap 23 mmol/L (10-20); BUN (Urea Nitrogen) 49 mg/dL (9.8-20.1); Calc. Creatinine Clearance 15 mL/min (70-130); Calcium 8.7 mg/dL (7.8-10.44); Carbon Dioxide 16 mmol/L (22-29); Chloride 106 mmol/L (98-107); Glucose 108 mg/dL (70-105); Potassium 4.8 mmol/L (3.5-5.1); Sodium 140 mmol/L (136-145)
[2020-12-12 11:01] LABS: #Eosinphils 0.1 thou/uL (0.0-0.7); #Lymphocytes 2.2 thou/uL (1.20-3.40); #Monocytes 1.2 thou/uL (0.11-0.59); #Neutrophils 8.9 thou/uL (1.40-6.50); %Basophils 0.3 % (0.0-1.0); %Eosinophils 0.8 % (0.0-10.0); %Lymphocytes 17.6 % (21.0-51.0); %Monocytes 9.4 % (0.0-10.0); Hemoglobin 12.6 g/dL (12.0-16.0); Mean Corpuscular HGB CONC 31.7 g/dL (32.0-36.0); Mean Corpuscular Volume 88.3 fL (78.0-98.0); Mean Platelet Volume 8.1 fL (7.4-10.4); Platelet Count 264 thou/uL (130-400); RBC Distribution Width 14.9 % (11.5-14.5); White Blood Cell (WBC) Count 12.4 thou/uL (4.8-10.8)
[2020-12-12 14:12] LABS: Bilirubin Negative (Negative); Blood, Urine 1+ (Negative); Clarity Turbid (Clear); Glucose, Urine (Dipstick) Normal (Negative); Ketone, Urine Negative (Negative); Leukocyte 250 Leu/uL (Negative); Nitrite Negative (Negative); Protein, Urine (Dipstick) 100 mg/dL (Neg-Trace); RBC/HPF 0-3 HPF (0-3); Urobilinogen Normal mg/dL (Less than 2); pH, Urine 5.5 (5.0-9.0)
[2020-12-12 14:14] LABS: Bacteria/HPF 1+ HPF (None Seen)
[2020-12-12 14:15] LABS: Urine Culture Reflex No No
[2020-12-12 14:19] LABS: Amphetamine Detected (NotDetected); Barbiturates Screen Not Detected (NotDetected); Benzodiazepine Screen Not Detected (NotDetected); Cocaine Metabolite Screen Not Detected (NotDetected); Methadone Not Detected (NotDetected); Methamphetamine Detected (NotDetected); Opiate Screen Detected (NotDetected); Oxycodone Screen Not Detected (NotDetected); Phencyclidine (PCP) Not Detected (NotDetected); THC/Cannabinoid Screen Not Detected (NotDetected); Tricyclic Screen Not Detected (NotDetected)
[2020-12-12] MEDS ORDERED: Lorazepam 1 MG TAB PO SCH (16:15)
[2020-12-12] MEDS: cefTRIAXone\\ROCEPHIN 1 GM in Sodium Chloride 0.9% 100 ML IVPB SCH (16:52)
[2020-12-12] MEDS: Acetaminophen 325 MG TAB PO PRN ×2 (16:52→21:28)
[2020-12-12 17:18] LABS: Creatinine, Urine 163.67 mg/dL (47-110); Potassium, Urine 39.8 mmol/L
[2020-12-12] MEDS: Sodium Bicarbonate Tab 325 MG TAB PO SCH (21:28)
[2020-12-13] MEDS: Sodium Chloride 0.9% 1,000 ML IV SCH ×4 (01:27→16:15)
[2020-12-13] MEDS: Acetaminophen 325 MG TAB PO PRN ×2 (03:35→09:58)
[2020-12-13 04:46] LABS: #Eosinphils 0.1 thou/uL (0.0-0.7); #Lymphocytes 2.3 thou/uL (1.20-3.40); #Monocytes 0.8 thou/uL (0.11-0.59); #Neutrophils 6.1 thou/uL (1.40-6.50); %Basophils 0.5 % (0.0-1.0); %Eosinophils 1.1 % (0.0-10.0); %Monocytes 8.1 % (0.0-10.0); %Neutrophils 65.3 % (42.0-75.0); Hemoglobin 11.3 g/dL (12.0-16.0); Mean Corpuscular HGB CONC 30.6 g/dL (32.0-36.0); Mean Corpuscular Hemoglobin 26.6 pg (27.0-31.0); Mean Platelet Volume 8.7 fL (7.4-10.4); Platelet Count 241 thou/uL (130-400); Red Blood Cell (RBC) Count 4.25 mill/uL (4.20-5.40); White Blood Cell (WBC) Count 9.3 thou/uL (4.8-10.8)
[2020-12-13 05:18] LABS: Anion Gap 16 mmol/L (10-20); BUN (Urea Nitrogen) 51 mg/dL (9.8-20.1); Calc. Creatinine Clearance 19 mL/min (70-130); Calcium 8.2 mg/dL (7.8-10.44); Carbon Dioxide 20 mmol/L (22-29); Chloride 105 mmol/L (98-107); Glucose 101 mg/dL (70-105); Potassium 3.9 mmol/L (3.5-5.1); Sodium 137 mmol/L (136-145)
[2020-12-13] MEDS ORDERED: Magnesium Oxide 400 MG TAB PO SCH (09:00)
[2020-12-13] MEDS ORDERED: Morphine 2 MG/ML VIAL SLOW IVP SCH (09:45)
[2020-12-13] MEDS: Folic Acid 1 MG TAB PO SCH (09:57)
[2020-12-13] MEDS: Thiamine 100 MG TAB PO SCH (09:57)
[2020-12-13] MEDS: Sodium Bicarbonate Tab 325 MG TAB PO SCH ×2 (09:57→21:02)
[2020-12-13] MEDS: Cyanocobalamin (Vitamin B-12) 1,000 MCG TAB PO SCH (09:57)
[2020-12-13] MEDS: Heparin 5,000 UNITS/ML VIAL SC SCH ×2 (09:58→21:02)
[2020-12-13] MEDS: HYDROcodone/Acetaminophen 5/325 mg Tablet PO PRN ×3 (14:20→21:02)
[2020-12-13] MEDS: cefTRIAXone\\ROCEPHIN 1 GM in Sodium Chloride 0.9% 100 ML IVPB SCH (16:14)
[2020-12-13] MEDS: Ondansetron PF 4 MG/2 ML Vial IVP PRN (22:32)
[2020-12-13] MEDS: Melatonin 3 MG TAB PO PRN (22:32)
[2020-12-14] MEDS: HYDROcodone/Acetaminophen 5/325 mg Tablet PO PRN ×2 (00:57→12:13)
[2020-12-14] MEDS: Sodium Chloride 0.9% 1,000 ML IV SCH ×3 (02:09→14:45)
[2020-12-14] MEDS: Ondansetron PF 4 MG/2 ML Vial IVP PRN ×3 (04:11→16:57)
[2020-12-14 04:47] LABS: #Eosinphils 0.1 thou/uL (0.0-0.7); #Lymphocytes 2.2 thou/uL (1.20-3.40); #Monocytes 0.5 thou/uL (0.11-0.59); #Neutrophils 5.5 thou/uL (1.40-6.50); %Basophils 0.3 % (0.0-1.0); %Eosinophils 1.8 % (0.0-10.0); %Lymphocytes 26.2 % (21.0-51.0); %Monocytes 6.5 % (0.0-10.0); %Neutrophils 65.3 % (42.0-75.0); Hemoglobin 11.3 g/dL (12.0-16.0); Mean Corpuscular HGB CONC 32.5 g/dL (32.0-36.0); Mean Corpuscular Hemoglobin 28.5 pg (27.0-31.0); Mean Corpuscular Volume 87.6 fL (78.0-98.0); Mean Platelet Volume 8.6 fL (7.4-10.4); Platelet Count 242 thou/uL (130-400); RBC Distribution Width 14.7 % (11.5-14.5); Red Blood Cell (RBC) Count 3.97 mill/uL (4.20-5.40); White Blood Cell (WBC) Count 8.4 thou/uL (4.8-10.8)
[2020-12-14 05:17] LABS: Anion Gap 14 mmol/L (10-20); BUN (Urea Nitrogen) 40 mg/dL (9.8-20.1); Calc. Creatinine Clearance 42 mL/min (70-130); Calcium 8.5 mg/dL (7.8-10.44); Carbon Dioxide 22 mmol/L (22-29); Chloride 108 mmol/L (98-107); Glucose 108 mg/dL (70-105); Potassium 4.1 mmol/L (3.5-5.1); Sodium 140 mmol/L (136-145)
[2020-12-14] MEDS: Cyanocobalamin (Vitamin B-12) 1,000 MCG TAB PO SCH (08:23)
[2020-12-14] MEDS: Folic Acid 1 MG TAB PO SCH (08:24)
[2020-12-14] MEDS: Heparin 5,000 UNITS/ML VIAL SC SCH ×2 (08:24→20:16)
[2020-12-14] MEDS: Thiamine 100 MG TAB PO SCH (08:27)
[2020-12-14] MEDS: Sodium Bicarbonate Tab 325 MG TAB PO SCH (08:28)
[2020-12-14] MEDS: Lorazepam 1 MG TAB PO PRN ×4 (08:29→21:49)
[2020-12-14] MEDS: cefTRIAXone\\ROCEPHIN 1 GM in Sodium Chloride 0.9% 100 ML IVPB SCH (16:57)
[2020-12-14] MEDS ORDERED: cloNIDine 0.1 MG TAB PO PRN (17:59)
[2020-12-14] MEDS: Melatonin 3 MG TAB PO PRN (20:16)
[2020-12-15] MEDS: HYDROcodone/Acetaminophen 5/325 mg Tablet PO PRN ×3 (01:11→12:57)
[2020-12-15] MEDS: Lorazepam 1 MG TAB PO PRN (03:03)
[2020-12-15] MEDS: Sodium Chloride 0.9% 1,000 ML IV SCH (03:39)
[2020-12-15 05:43] LABS: Anion Gap 9 mmol/L (10-20); BUN (Urea Nitrogen) 23 mg/dL (9.8-20.1); Calc. Creatinine Clearance 90 mL/min (70-130); Calcium 8.3 mg/dL (7.8-10.44); Carbon Dioxide 25 mmol/L (22-29); Chloride 109 mmol/L (98-107); Glucose 91 mg/dL (70-105); Potassium 3.8 mmol/L (3.5-5.1); Sodium 139 mmol/L (136-145)
[2020-12-15] MEDS: Heparin 5,000 UNITS/ML VIAL SC SCH (06:34)
[2020-12-15] MEDS: Ondansetron PF 4 MG/2 ML Vial IVP PRN (07:49)
[2020-12-15] MEDS ORDERED: Multivit, Therapeutic 1 TAB PO SCH (09:00)
[2020-12-15] MEDS: Folic Acid 1 MG TAB PO SCH (09:07)
[2020-12-15 09:11] LABS: #Eosinphils 0.2 thou/uL (0.0-0.7); #Monocytes 0.4 thou/uL (0.11-0.59); #Neutrophils 4.6 thou/uL (1.40-6.50); %Basophils 0.6 % (0.0-1.0); %Eosinophils 2.6 % (0.0-10.0); %Lymphocytes 27.8 % (21.0-51.0); %Monocytes 5.2 % (0.0-10.0); %Neutrophils 63.8 % (42.0-75.0); Hemoglobin 11.4 g/dL (12.0-16.0); Mean Corpuscular HGB CONC 31.5 g/dL (32.0-36.0); Mean Corpuscular Hemoglobin 27.4 pg (27.0-31.0); Mean Corpuscular Volume 87.1 fL (78.0-98.0); Mean Platelet Volume 8.3 fL (7.4-10.4); Platelet Count 250 thou/uL (130-400); RBC Distribution Width 14.8 % (11.5-14.5); Red Blood Cell (RBC) Count 4.15 mill/uL (4.20-5.40); White Blood Cell (WBC) Count 7.2 thou/uL (4.8-10.8)
[2020-12-15] MEDS: Cyanocobalamin (Vitamin B-12) 1,000 MCG TAB PO SCH (09:11)
[2020-12-15] MEDS: Thiamine 100 MG TAB PO SCH (09:11)
[2020-12-15 12:17] VITALS: BP 176/73; TEMP 98.3
[2020-12-15] MEDS ORDERED: cefTRIAXone\\ROCEPHIN 1 GM in Sodium Chloride 0.9% 100 ML IVPB SCH (13:00)
[2020-12-15] MEDS ORDERED: Aspirin 81 mg Enteric Coated Tablet PO SCH (21:00)
== END 2020-12-15 14:09 | disposition home or self-care (01) | DRG 872 ==
LOC: ERS 17:27 → ERHOLD 22:57 → 2NO 12-12 11:55
PROVIDERS: ADMIT Internal Medicine; ATTEND Internal Medicine
PROC: 2W3RX1Z Immobilization of Left Lower Leg using Splint (ICD-10-PCS; principal; 2020-12-13)
DX: A41.9 Sepsis, unspecified organism (principal); N17.9 Acute kidney failure, unspecified; E87.2 Acidosis; N39.0 Urinary tract infection, site not specified; F41.9 Anxiety disorder, unspecified; F32.9 Major depressive disorder, single episode, unspecified; F43.10 Post-traumatic stress disorder, unspecified; F19.11 Other psychoactive substance abuse, in remission; S82.52XA Displaced fracture of medial malleolus of left tibia, initial encounter for closed fracture; E86.0 Dehydration; E66.9 Obesity, unspecified; W19.XXXA Unspecified fall, initial encounter; N18.30 Chronic kidney disease, stage 3 unspecified; Z20.822 Contact with and (suspected) exposure to COVID-19; Z96.653 Presence of artificial knee joint, bilateral; I12.9 Hypertensive chronic kidney disease with stage 1 through stage 4 chronic kidney disease, or unspecified chronic kidney disease; Z98.890 Other specified postprocedural states; Z87.891 Personal history of nicotine dependence; Z68.35 Body mass index [BMI] 35.0-35.9, adult
CPT/HCPCS: 36415; 71045; 74176; 80048; 80053; 80306; 81001; 82570; 84133; 84156; 84300; 84560; 85025; 93005; J0696; J1644; J2060; J2270; J2405; J3490; J7050; U0002

== ENCOUNTER 2021-11-02 17:10 | Inpatient (IN) | payer SELFPAY ==
[2021-11-02] MEDS ORDERED: Multivitamins, Adult 10 ML, Thiamine HCl 100 MG, Folic Acid 1 MG in Dextrose 5 %-0.45 %... IV SCH (18:15)
[2021-11-02 18:20] LABS: #Basophils 0.1 thou/uL (0.0-0.2); #Eosinphils 0.1 thou/uL (0.0-0.7); #Lymphocytes 1.6 thou/uL (1.20-3.40); #Monocytes 0.5 thou/uL (0.11-0.59); #Neutrophils 8.9 thou/uL (1.40-6.50); %Basophils 0.5 % (0.0-1.0); %Eosinophils 0.9 % (0.0-10.0); %Lymphocytes 13.9 % (21.0-51.0); %Monocytes 4.4 % (0.0-10.0); %Neutrophils 80.3 % (42.0-75.0); Mean Corpuscular HGB CONC 32.2 g/dL (32.0-36.0); Mean Corpuscular Hemoglobin 27.7 pg (27.0-31.0); Mean Corpuscular Volume 86.1 fL (78.0-98.0); Mean Platelet Volume 8.2 fL (7.4-10.4); Platelet Count 240 thou/uL (130-400); Red Blood Cell (RBC) Count 4.68 mill/uL (4.20-5.40); White Blood Cell (WBC) Count 11.1 thou/uL (4.8-10.8)
[2021-11-02 18:36] LABS: Acetaminophen Less than 10.0 mcg/mL (10.0-30.0); Alcohol Less than 10 mg/dL (Less than 10); CK (CPK) 213 U/L (29-168); Magnesium 2.1 mg/dL (1.6-2.6); Salicylate Less than 8.0 mg/dL (15.0-30.0)
[2021-11-02 18:37] LABS: ALT (SGPT) 26 U/L (8-55); AST (SGOT) 21 U/L (5-34); Albumin 4.3 g/dL (3.5-5.0); Alkaline Phosphatase 87 U/L (40-110); Anion Gap 19 mmol/L (10-20); BUN (Urea Nitrogen) 14 mg/dL (9.8-20.1); Bilirubin, Total 1.3 mg/dL (0.2-1.2); Calc. Creatinine Clearance 0 mL/min (70-130); Calcium 9.3 mg/dL (7.8-10.44); Carbon Dioxide 24 mmol/L (22-29); Chloride 98 mmol/L (98-107); Estimated GFR 61; Globulin 3.1 g/dL (2.4-3.5); Glucose 143 mg/dL (70-105); Lipase 24 U/L (8-78); Potassium 3.4 mmol/L (3.5-5.1); Protein, Total 7.4 g/dL (6.0-8.3); Sodium 138 mmol/L (136-145)
[2021-11-02] MEDS ORDERED: Lorazepam (BATCHED) 2 MG/ML SYR ONE ×2 (19:24→21:36)
[2021-11-02 20:13] LABS: Bacteria/HPF None Seen HPF (None Seen); Bilirubin Negative (Negative); Blood, Urine Negative (Negative); Clarity Clear (Clear); Glucose, Urine (Dipstick) Normal (Negative); Ketone, Urine 10 mg/dL (Negative); Leukocyte Negative Leu/uL (Negative); Nitrite Negative (Negative); Protein, Urine (Dipstick) 30 mg/dL (Neg-Trace); RBC/HPF 0-3 HPF (0-3); Specific Gravity, Urine 1.027 (1.002-1.036); Squamous Epithelial 0-3 HPF (0-3); Urobilinogen Normal mg/dL (Less than 2); WBC/HPF 0-3 HPF (0-3)
[2021-11-02 20:20] LABS: Amphetamine Not Detected (NotDetected); Barbiturates Screen Not Detected (NotDetected); Benzodiazepine Screen Detected (NotDetected); Cocaine Metabolite Screen Not Detected (NotDetected); Methadone Not Detected (NotDetected); Methamphetamine Not Detected (NotDetected); Opiate Screen Not Detected (NotDetected); Oxycodone Screen Not Detected (NotDetected); Phencyclidine (PCP) Not Detected (NotDetected); THC/Cannabinoid Screen Not Detected (NotDetected); Tricyclic Screen Detected (NotDetected)
[2021-11-02] MEDS ORDERED: hydrOXYzine 25 MG TAB ONE (21:04)
[2021-11-02] MEDS ORDERED: Lorazepam 2 MG/ML VIAL IM PRN (22:48)
[2021-11-02] MEDS ORDERED: Ondansetron ODT 4 MG TAB PO PRN (22:48)
[2021-11-02] MEDS ORDERED: Electrolyte Replacement Protocol 1 EACH FS PRN (23:00)
[2021-11-02] MEDS ORDERED: Thiamine HCl 200 MG/2 ML VIAL SLOW IVP SCH (23:00)
[2021-11-02] MEDS ORDERED: Ondansetron PF 4 MG/2 ML Vial IVP PRN (23:38)
[2021-11-02] MEDS ORDERED: Acetaminophen 650 MG Suppository PR PRN (23:38)
[2021-11-02] MEDS ORDERED: Acetaminophen 325 MG TAB PO PRN (23:38)
[2021-11-03 01:38] VITALS: BMI 50.0
[2021-11-03] MEDS: Lorazepam 1 MG TAB PO PRN ×2 (03:56→07:54)
[2021-11-03] MEDS: Potassium Chloride 20 MEQ in Premix Bag 1 BAG IVPB SCH ×2 (03:57→07:57)
[2021-11-03] MEDS: Lorazepam 1 MG TAB PO SCH ×2 (05:21→05:49)
[2021-11-03 05:57] LABS: #Eosinphils 0.1 thou/uL (0.0-0.7); #Lymphocytes 1.7 thou/uL (1.20-3.40); #Monocytes 0.9 thou/uL (0.11-0.59); #Neutrophils 7.8 thou/uL (1.40-6.50); %Basophils 0.3 % (0.0-1.0); %Eosinophils 0.7 % (0.0-10.0); %Lymphocytes 16.1 % (21.0-51.0); %Monocytes 8.2 % (0.0-10.0); %Neutrophils 74.7 % (42.0-75.0); Hemoglobin 11.5 g/dL (12.0-16.0); Mean Corpuscular Hemoglobin 27.9 pg (27.0-31.0); Mean Corpuscular Volume 87.3 fL (78.0-98.0); Mean Platelet Volume 7.9 fL (7.4-10.4); Platelet Count 226 thou/uL (130-400); RBC Distribution Width 14.7 % (11.5-14.5); Red Blood Cell (RBC) Count 4.13 mill/uL (4.20-5.40); White Blood Cell (WBC) Count 10.4 thou/uL (4.8-10.8)
[2021-11-03 06:14] LABS: Anion Gap 14 mmol/L (10-20); BUN (Urea Nitrogen) 11 mg/dL (9.8-20.1); Calc. Creatinine Clearance 170 mL/min (70-130); Calcium 8.6 mg/dL (7.8-10.44); Carbon Dioxide 25 mmol/L (22-29); Chloride 101 mmol/L (98-107); Estimated GFR 78; Glucose 111 mg/dL (70-105); Potassium 3.6 mmol/L (3.5-5.1); Sodium 136 mmol/L (136-145)
[2021-11-03] MEDS: Enoxaparin Sodium 40 MG/0.4 ML SYRINGE SC SCH (07:53)
[2021-11-03] MEDS: Folic Acid 1 MG TAB PO SCH (07:53)
[2021-11-03] MEDS: Multivit, Therapeutic 1 TAB PO SCH (07:53)
[2021-11-03] MEDS ORDERED: Ziprasidone 20 MG VIAL IM SCH (16:32)
[2021-11-03] MEDS ORDERED: Sterile Water 10 ML VIAL FS PRN ×2 (16:45→22:15)
[2021-11-03] MEDS ORDERED: OLANZapine 5 MG TAB PO SCH (22:15)
[2021-11-03] MEDS ORDERED: OLANZapine 10 MG VIAL IM SCH (22:15)
[2021-11-03] MEDS ORDERED: Lorazepam 1 MG TAB PO PRN (22:49)
[2021-11-04 06:53] LABS: #Basophils 0.1 thou/uL (0.0-0.2); #Eosinphils 0.1 thou/uL (0.0-0.7); #Lymphocytes 1.7 thou/uL (1.20-3.40); #Monocytes 0.8 thou/uL (0.11-0.59); #Neutrophils 8.3 thou/uL (1.40-6.50); %Basophils 0.6 % (0.0-1.0); %Eosinophils 1.1 % (0.0-10.0); %Lymphocytes 15.5 % (21.0-51.0); %Monocytes 6.9 % (0.0-10.0); Hemoglobin 12.4 g/dL (12.0-16.0); Mean Corpuscular Volume 87.8 fL (78.0-98.0); Mean Platelet Volume 7.9 fL (7.4-10.4); Platelet Count 241 thou/uL (130-400); RBC Distribution Width 14.7 % (11.5-14.5); Red Blood Cell (RBC) Count 4.29 mill/uL (4.20-5.40); White Blood Cell (WBC) Count 10.9 thou/uL (4.8-10.8)
[2021-11-04 07:16] LABS: ALT (SGPT) 25 U/L (8-55); AST (SGOT) 30 U/L (5-34); Alkaline Phosphatase 82 U/L (40-110); Anion Gap 14 mmol/L (10-20); BUN (Urea Nitrogen) 7 mg/dL (9.8-20.1); Bilirubin, Total 1.3 mg/dL (0.2-1.2); Calc. Creatinine Clearance 168 mL/min (70-130); Calcium 9.1 mg/dL (7.8-10.44); Carbon Dioxide 25 mmol/L (22-29); Chloride 105 mmol/L (98-107); Estimated GFR 77; Glucose 102 mg/dL (70-105); Potassium 3.9 mmol/L (3.5-5.1); Sodium 140 mmol/L (136-145)
[2021-11-04] MEDS: Folic Acid 1 MG TAB PO SCH (07:57)
[2021-11-04] MEDS: Multivit, Therapeutic 1 TAB PO SCH (07:57)
[2021-11-04] MEDS: Enoxaparin Sodium 40 MG/0.4 ML SYRINGE SC SCH (07:57)
[2021-11-04] MEDS: ALPRAZolam 0.25 MG TAB PO PRN ×2 (14:08→21:31)
[2021-11-04] MEDS ORDERED: Metoprolol Tartrate 25 MG TAB PO SCH (21:00)
[2021-11-04] MEDS ORDERED: Ziprasidone 20 MG CAP PO SCH (21:00)
[2021-11-04] MEDS ORDERED: Melatonin 3 MG TAB PO PRN (22:44)
[2021-11-04] MEDS ORDERED: Lorazepam 1 MG TAB PO PRN (22:49)
[2021-11-04] MEDS ORDERED: Lorazepam 0.5 MG TAB PO SCH (23:00)
[2021-11-05] MEDS: Multivit, Therapeutic 1 TAB PO SCH (08:29)
[2021-11-05] MEDS: Folic Acid 1 MG TAB PO SCH (08:29)
[2021-11-05] MEDS: ALPRAZolam 0.25 MG TAB PO PRN (08:32)
[2021-11-05] MEDS: Enoxaparin Sodium 40 MG/0.4 ML SYRINGE SC SCH (08:34)
[2021-11-05] MEDS ORDERED: Lisinopril 20 MG TAB PO SCH (09:00)
[2021-11-05] MEDS ORDERED: Metoprolol Tartrate 50 MG TAB PO SCH (09:00)
[2021-11-05 12:06] VITALS: BP 145/92; TEMP 98
[2021-11-05] MEDS ORDERED: Lorazepam 0.5 MG TAB PO PRN (22:49)
[2021-11-05] MEDS ORDERED: Thiamine 100 MG TAB PO SCH (23:00)
== END 2021-11-05 15:28 | disposition home or self-care (01) | DRG 92 ==
LOC: ERS 17:10 → NEURO 22:48 → OBSVTOIN 11-03 11:46
PROVIDERS: ADMIT Student in an Organized Health Care Education/Training Program; ATTEND Internal Medicine
PROC: HZ2ZZZZ Detoxification Services for Substance Abuse Treatment (ICD-10-PCS; principal; 2021-11-03)
DX: G92.8 Other toxic encephalopathy (principal); Z68.43 Body mass index [BMI] 50.0-59.9, adult; F39 Unspecified mood [affective] disorder; F41.9 Anxiety disorder, unspecified; I10 Essential (primary) hypertension; F43.10 Post-traumatic stress disorder, unspecified; F32.A Depression, unspecified; E78.5 Hyperlipidemia, unspecified; E87.6 Hypokalemia; E66.01 Morbid (severe) obesity due to excess calories; R41.0 Disorientation, unspecified; Z20.822 Contact with and (suspected) exposure to COVID-19; F10.11 Alcohol abuse, in remission; F15.11 Other stimulant abuse, in remission; F29 Unspecified psychosis not due to a substance or known physiological condition; Z98.890 Other specified postprocedural states; Z87.891 Personal history of nicotine dependence; Z79.899 Other long term (current) drug therapy
CPT/HCPCS: 36415; 51701; 70450; 71045; 80048; 80053; 80306; 80307; 81003; 81015; 82140; 82550; 83690; 83735; 84443; 84484; 85025; 93005; 93010; 96361; 96365; 96366; 96375; 96376; J1650; J2060; J3411; J3480; J3486; J7042; U0003; U0005

== ENCOUNTER 2022-10-08 13:58 | Emergency (ER) | payer SELFPAY ==
[2022-10-08] MEDS ORDERED: LORazepam 2 MG/ML SYR.(CARPUJECT) ONE (15:44)
[2022-10-08] MEDS ORDERED: Ondansetron PF 4 MG/2 ML Vial ONE (15:44)
[2022-10-08 16:34] LABS: #Basophils 0.1 thou/uL (0.0-0.2); #Monocytes 0.7 thou/uL (0.11-0.59); %Basophils 0.4 % (0.0-1.0); %Eosinophils 0.3 % (0.0-10.0); %Lymphocytes 15.6 % (21.0-51.0); %Monocytes 6.1 % (0.0-10.0); %Neutrophils 77.2 % (42.0-75.0); Hemoglobin 11.5 g/dL (12.0-16.0); Mean Corpuscular HGB CONC 32.2 g/dL (32.0-36.0); Mean Corpuscular Hemoglobin 27.4 pg (27.0-31.0); Mean Corpuscular Volume 85.2 fl (78.0-98.0); Mean Platelet Volume 9.2 fL (7.4-10.4); Platelet Count 300 10x3/uL (130-400); RBC Distribution Width 15.9 % (11.5-14.5); Red Blood Cell (RBC) Count 4.19 mill/uL (4.20-5.40); White Blood Cell (WBC) Count 11.7 10x3/uL (4.8-10.8)
[2022-10-08 16:57] LABS: ALT (SGPT) 12 U/L (8-55); AST (SGOT) 12 U/L (5-34); Albumin 4.3 g/dL (3.5-5.0); Alkaline Phosphatase 90 U/L (40-110); Anion Gap 18 mmol/L (10-20); BUN (Urea Nitrogen) 30 mg/dL (9.8-20.1); Bilirubin, Total 0.6 mg/dL (0.2-1.2); Calc. Creatinine Clearance 0 mL/min (70-130); Calcium 9.1 mg/dL (7.8-10.44); Carbon Dioxide 28 mmol/L (22-29); Chloride 93 mmol/L (98-107); Estimated GFR 26; Globulin 3.2 g/dL (2.4-3.5); Glucose 111 mg/dL (70-105); Lipase 13 U/L (8-78); Potassium 3.5 mmol/L (3.5-5.1); Protein, Total 7.5 g/dL (6.0-8.3); Sodium 135 mmol/L (136-145)
[2022-10-08 17:05] LABS: Bacteria/HPF 4+ HPF (None Seen); Bilirubin Negative (Negative); Blood, Urine Negative (Negative); CAUTI Indications for Culture Pelvic or flank pain; Clarity Turbid (Clear); Glucose, Urine (Dipstick) Normal (Negative); Ketone, Urine Negative (Negative); Leukocyte 75 Leu/uL (Negative); Nitrite Negative (Negative); Protein, Urine (Dipstick) 30 mg/dL (Neg-Trace); RBC/HPF 0-3 HPF (0-3); Specific Gravity, Urine 1.024 (1.002-1.036); Squamous Epithelial 21-50 HPF (0-3); Urobilinogen Normal mg/dL (Less than 2)
[2022-10-08 17:07] LABS: Urine Culture Reflex No No
== END 2022-10-08 18:26 | disposition home or self-care (01) ==
LOC: ERS 13:58
DX: N39.0 Urinary tract infection, site not specified (principal); I12.9 Hypertensive chronic kidney disease with stage 1 through stage 4 chronic kidney disease, or unspecified chronic kidney disease; N18.9 Chronic kidney disease, unspecified; D72.829 Elevated white blood cell count, unspecified; Z87.891 Personal history of nicotine dependence; Z79.899 Other long term (current) drug therapy
CPT/HCPCS: 36415; 74176; 80053; 81001; 83690; 85025; 96374; 96375; J2060; J2405

== ENCOUNTER 2023-02-18 14:57 | Inpatient (IN) | payer SELFPAY ==
[2023-02-18 15:37] LABS: #Monocytes 0.6 thou/uL (0.11-0.59); %Basophils 0.2 % (0.0-1.0); %Eosinophils 0.1 % (0.0-10.0); %Monocytes 4.4 % (0.0-10.0); %Neutrophils 84.5 % (42.0-75.0); Hematocrit 41.9 % (36.0-47.0); Hemoglobin 13.8 g/dL (12.0-16.0); Mean Corpuscular HGB CONC 32.9 g/dL (32.0-36.0); Mean Corpuscular Hemoglobin 27.9 pg (27.0-31.0); Mean Corpuscular Volume 84.6 fl (78.0-98.0); Mean Platelet Volume 9.8 fL (7.4-10.4); Platelet Count 417 10x3/uL (130-400); Red Blood Cell (RBC) Count 4.95 mill/uL (4.20-5.40); White Blood Cell (WBC) Count 14.2 10x3/uL (4.8-10.8)
[2023-02-18 16:00] LABS: Acetaminophen Less than 10 mcg/mL (10.0-30.0); Alcohol Less than 10.0 mg/dL (Less than 10); Anion Gap 23 mmol/L (10-20); BUN (Urea Nitrogen) 40 mg/dL (9.8-20.1); Calc. Creatinine Clearance 0 mL/min (70-130); Carbon Dioxide 17 mmol/L (22-29); Chloride 97 mmol/L (98-107); Lipase 71 U/L (8-78); Magnesium 2.5 mg/dL (1.6-2.6); Potassium 2.9 mmol/L (3.5-5.1); Salicylate Less than 8.0 mg/dL (15.0-30.0); Sodium 134 mmol/L (136-145)
[2023-02-18 16:01] LABS: ALT (SGPT) 12 U/L (8-55); AST (SGOT) 11 U/L (5-34); Albumin 4.2 g/dL (3.5-5.0); Alkaline Phosphatase 107 U/L (40-110); Bilirubin, Total 0.9 mg/dL (0.2-1.2); CK (CPK) 102 U/L (29-168); Calcium 9.1 mg/dL (7.8-10.44); Estimated GFR 27; Glucose 210 mg/dL (70-105); Protein, Total 7.2 g/dL (6.0-8.3)
[2023-02-18 16:19] LABS: Troponin I Less than 0.010 ng/mL (< 0.028)
[2023-02-18] MEDS ORDERED: Cefepime 2 GM VIAL ONE (17:11)
[2023-02-18] MEDS ORDERED: Sodium Chloride 0.9% 100 ML ONE (17:12)
[2023-02-18 18:40] LABS: Amphetamine Not Detected (NotDetected); Barbiturates Screen Not Detected (NotDetected); Benzodiazepine Screen Detected (NotDetected); Cocaine Metabolite Screen Not Detected (NotDetected); Methadone Not Detected (NotDetected); Methamphetamine Not Detected (NotDetected); Opiate Screen Not Detected (NotDetected); Oxycodone Screen Not Detected (NotDetected); Phencyclidine (PCP) Not Detected (NotDetected); THC/Cannabinoid Screen Not Detected (NotDetected); Tricyclic Screen Not Detected (NotDetected)
[2023-02-18 19:00] LABS: Bacteria/HPF None Seen HPF (None Seen); Bilirubin Negative (Negative); Blood, Urine Negative (Negative); CAUTI Indications for Culture Pelvic or flank pain; Clarity Clear (Clear); Glucose, Urine (Dipstick) Normal (Negative); Ketone, Urine Trace mg/dL (Negative); Leukocyte Negative Leu/uL (Negative); Nitrite Negative (Negative); Protein, Urine (Dipstick) 30 mg/dL (Neg-Trace); RBC/HPF 0-3 HPF (0-3); Specific Gravity, Urine 1.023 (1.002-1.036); Urobilinogen Normal mg/dL (Less than 2); WBC/HPF 0-3 HPF (0-3); pH, Urine 5.5 (5.0-9.0)
[2023-02-18 19:01] LABS: Urine Culture Reflex No No
[2023-02-18 19:23] LABS: Lactic Acid 0.9 mmol/L (0.5-2.2)
[2023-02-18] MEDS ORDERED: Morphine 4 MG/ML VIAL ONE (19:32)
[2023-02-18] MEDS ORDERED: LORazepam 2 MG/ML SYR.(CARPUJECT) ONE (19:50)
[2023-02-18 20:53] LABS: Actual Bicarbonate (HCO3v) 17.8 mEq/L (22-28); Base Excess -6.9 mEq/L (-2.0 to +3.0); Calcium, Ionized (venous) 1.06 mmol/L (1.16-1.32); Chloride (VBG) 95 mmol/L (98-106); Hematocrit-VBG 43 % (36.0-47.0); Hemoglobin (Hb) 14.5 g/dL (11.7-16.0); Potassium (VBG) 2.81 mmol/L (3.70-5.30); Sodium 135 mmol/L (133-146); pH (venous) 7.345 (7.32-7.43)
[2023-02-18] MEDS ORDERED: Potassium Chloride 20 MEQ TAB ONE (21:45)
[2023-02-18 23:17] VITALS: BMI 45.4
[2023-02-18] MEDS ORDERED: Electrolyte Replacement Protocol 1 EACH FS SCH (23:45)
[2023-02-18] MEDS ORDERED: Acetaminophen 325 MG TAB PO PRN (23:54)
[2023-02-18] MEDS ORDERED: Lorazepam 1 MG TAB PO PRN (23:54)
[2023-02-18] MEDS ORDERED: Lorazepam 2 MG/ML VIAL IM PRN (23:54)
[2023-02-18] MEDS ORDERED: Ondansetron PF 4 MG/2 ML Vial IVP PRN (23:54)
[2023-02-18] MEDS ORDERED: Ondansetron ODT 4 MG TAB PO PRN (23:54)
[2023-02-19] MEDS ORDERED: Senokot S 8.6-50 MG TAB PO PRN (00:10)
[2023-02-19] MEDS: Lorazepam 1 MG TAB PO SCH ×5 (00:17→22:44)
[2023-02-19 01:25] LABS: Hemoglobin A1c 6.6 % (4.0-6.0)
[2023-02-19] MEDS ORDERED: Potassium Chloride 20 MEQ TAB PO SCH ×2 (02:00→08:00)
[2023-02-19 04:32] LABS: #Eosinphils 0.1 thou/uL (0.0-0.7); #Monocytes 1.5 thou/uL (0.11-0.59); #Neutrophils 10.1 thou/uL (1.40-6.50); %Basophils 0.3 % (0.0-1.0); %Eosinophils 0.5 % (0.0-10.0); %Lymphocytes 23.3 % (21.0-51.0); %Monocytes 9.7 % (0.0-10.0); %Neutrophils 65.6 % (42.0-75.0); Hematocrit 39.2 % (36.0-47.0); Hemoglobin 12.4 g/dL (12.0-16.0); Mean Corpuscular HGB CONC 31.6 g/dL (32.0-36.0); Mean Corpuscular Hemoglobin 26.8 pg (27.0-31.0); Mean Corpuscular Volume 84.8 fl (78.0-98.0); Mean Platelet Volume 10.1 fL (7.4-10.4); Platelet Count 347 10x3/uL (130-400); RBC Distribution Width 15.2 % (11.5-14.5); Red Blood Cell (RBC) Count 4.62 mill/uL (4.20-5.40); White Blood Cell (WBC) Count 15.4 10x3/uL (4.8-10.8)
[2023-02-19 05:02] LABS: Anion Gap 15 mmol/L (10-20); BUN (Urea Nitrogen) 34 mg/dL (9.8-20.1); Calc. Creatinine Clearance 84 mL/min (70-130); Calcium 8.6 mg/dL (7.8-10.44); Carbon Dioxide 23 mmol/L (22-29); Chloride 101 mmol/L (98-107); Estimated GFR 38; Glucose 90 mg/dL (70-105); Potassium 3.3 mmol/L (3.5-5.1); Sodium 136 mmol/L (136-145)
[2023-02-19] MEDS ORDERED: Famotidine 20 MG TAB PO SCH (09:00)
[2023-02-19] MEDS ORDERED: Amlodipine 10 MG TAB PO SCH (11:15)
[2023-02-19] MEDS ORDERED: Amlodipine 5 MG TAB PO SCH (11:15)
[2023-02-19] MEDS ORDERED: cloNIDine 0.1 MG TAB PO SCH ×2 (11:15→21:00)
[2023-02-19] MEDS ORDERED: Electrolyte Replacement Protocol FS PRN (13:30)
[2023-02-19] MEDS: traMADol HCl 50 MG TAB PO PRN (20:10)
[2023-02-19] MEDS: Melatonin 3 MG TAB PO PRN (23:29)
[2023-02-20] MEDS: Lorazepam 1 MG TAB PO SCH ×4 (04:58→23:47)
[2023-02-20] MEDS: traMADol HCl 50 MG TAB PO PRN ×2 (04:58→20:00)
[2023-02-20 05:58] LABS: #Basophils 0.1 thou/uL (0.0-0.2); #Eosinphils 0.3 thou/uL (0.0-0.7); #Monocytes 0.7 thou/uL (0.11-0.59); #Neutrophils 4.9 thou/uL (1.40-6.50); %Basophils 0.7 % (0.0-1.0); %Eosinophils 2.6 % (0.0-10.0); %Monocytes 7.1 % (0.0-10.0); %Neutrophils 50.8 % (42.0-75.0); Hematocrit 38.1 % (36.0-47.0); Hemoglobin 11.8 g/dL (12.0-16.0); Mean Corpuscular Hemoglobin 27.2 pg (27.0-31.0); Mean Corpuscular Volume 87.8 fl (78.0-98.0); Mean Platelet Volume 10.4 fL (7.4-10.4); Platelet Count 208 10x3/uL (130-400); RBC Distribution Width 15.1 % (11.5-14.5); Red Blood Cell (RBC) Count 4.34 mill/uL (4.20-5.40); White Blood Cell (WBC) Count 9.6 10x3/uL (4.8-10.8)
[2023-02-20 06:23] LABS: Phosphorus 1.8 mg/dL (2.3-4.7)
[2023-02-20 06:24] LABS: Anion Gap 15 mmol/L (10-20); BUN (Urea Nitrogen) 24 mg/dL (9.8-20.1); Calc. Creatinine Clearance 109 mL/min (70-130); Calcium 8.5 mg/dL (7.8-10.44); Carbon Dioxide 21 mmol/L (22-29); Chloride 101 mmol/L (98-107); Estimated GFR 52; Glucose 85 mg/dL (70-105); Magnesium 3.1 mg/dL (1.6-2.6); Potassium 3.3 mmol/L (3.5-5.1); Sodium 134 mmol/L (136-145)
[2023-02-20] MEDS ORDERED: PHOS-NAK 1 PKT PACK PO SCH (08:00)
[2023-02-20] MEDS ORDERED: Potassium Chloride 20 MEQ TAB PO SCH (08:00)
[2023-02-20] MEDS ORDERED: Amlodipine 10 MG TAB PO SCH (09:00)
[2023-02-20] MEDS: Amlodipine 5 MG TAB PO SCH (10:35)
[2023-02-20] MEDS: Famotidine 20 MG TAB PO SCH ×2 (10:37→20:00)
[2023-02-20] MEDS: Lisinopril 20 MG TAB PO SCH (10:38)
[2023-02-20] MEDS: Lorazepam 1 MG TAB PO PRN ×2 (11:17→19:59)
[2023-02-20] MEDS: Melatonin 3 MG TAB PO PRN (20:00)
[2023-02-20] MEDS: Lorazepam 0.5 MG TAB PO SCH (23:47)
[2023-02-21 04:35] LABS: #Basophils 0.1 thou/uL (0.0-0.2); #Eosinphils 0.3 thou/uL (0.0-0.7); #Monocytes 0.8 thou/uL (0.11-0.59); %Basophils 0.6 % (0.0-1.0); %Eosinophils 2.3 % (0.0-10.0); %Neutrophils 55.4 % (42.0-75.0); Hematocrit 37.2 % (36.0-47.0); Mean Corpuscular HGB CONC 32.3 g/dL (32.0-36.0); Mean Corpuscular Hemoglobin 27.3 pg (27.0-31.0); Mean Platelet Volume 9.5 fL (7.4-10.4); Platelet Count 290 10x3/uL (130-400); White Blood Cell (WBC) Count 10.8 10x3/uL (4.8-10.8)
[2023-02-21] MEDS: Lorazepam 0.5 MG TAB PO SCH ×4 (05:02→23:47)
[2023-02-21 05:04] LABS: Anion Gap 13 mmol/L (10-20); BUN (Urea Nitrogen) 16 mg/dL (9.8-20.1); Calc. Creatinine Clearance 115 mL/min (70-130); Calcium 8.6 mg/dL (7.8-10.44); Carbon Dioxide 23 mmol/L (22-29); Chloride 104 mmol/L (98-107); Estimated GFR 55; Glucose 102 mg/dL (70-105); Potassium 3.3 mmol/L (3.5-5.1); Sodium 137 mmol/L (136-145)
[2023-02-21 05:08] LABS: Mean Corpuscular Volume 84.5 fl (78.0-98.0)
[2023-02-21] MEDS ORDERED: Potassium Chloride 20 MEQ TAB PO SCH (08:00)
[2023-02-21] MEDS: Lisinopril 20 MG TAB PO SCH (08:47)
[2023-02-21] MEDS: Amlodipine 5 MG TAB PO SCH (08:47)
[2023-02-21] MEDS: Famotidine 20 MG TAB PO SCH ×2 (08:47→21:02)
[2023-02-21] MEDS: Lorazepam 1 MG TAB PO PRN ×2 (14:32→21:03)
[2023-02-21] MEDS: traMADol HCl 50 MG TAB PO PRN (17:32)
[2023-02-21] MEDS: Melatonin 3 MG TAB PO PRN (21:02)
[2023-02-21] MEDS ORDERED: Lorazepam 0.5 MG TAB PO PRN (23:54)
[2023-02-22 05:27] LABS: Anion Gap 13 mmol/L (10-20); BUN (Urea Nitrogen) 18 mg/dL (9.8-20.1); Calc. Creatinine Clearance 121 mL/min (70-130); Calcium 8.8 mg/dL (7.8-10.44); Carbon Dioxide 23 mmol/L (22-29); Chloride 105 mmol/L (98-107); Estimated GFR 59; Glucose 97 mg/dL (70-105); Magnesium 1.6 mg/dL (1.6-2.6); Potassium 3.4 mmol/L (3.5-5.1); Sodium 138 mmol/L (136-145)
[2023-02-22 05:29] LABS: Phosphorus 3.3 mg/dL (2.3-4.7)
[2023-02-22] MEDS ORDERED: Potassium Chloride 20 MEQ TAB PO SCH (08:15)
[2023-02-22] MEDS ORDERED: ALPRAZolam 0.25 MG TAB PO SCH (09:00)
[2023-02-22] MEDS ORDERED: Magnesium Oxide 400 MG TAB PO SCH (09:00)
[2023-02-22] MEDS: Lisinopril 20 MG TAB PO SCH (09:48)
[2023-02-22] MEDS: Amlodipine 5 MG TAB PO SCH (09:48)
[2023-02-22] MEDS: Famotidine 20 MG TAB PO SCH (09:48)
[2023-02-22] MEDS: traMADol HCl 50 MG TAB PO PRN (09:52)
[2023-02-22 12:27] VITALS: BP 113/74; TEMP 97.6
== END 2023-02-22 14:30 | disposition home or self-care (01) | DRG 896 ==
LOC: ERS 14:57 → 2SE 21:26 → OBSVTOIN 02-20 08:14
PROVIDERS: ADMIT Student in an Organized Health Care Education/Training Program; ATTEND Internal Medicine
DX: F19.239 Other psychoactive substance dependence with withdrawal, unspecified (principal); G92.8 Other toxic encephalopathy; N17.9 Acute kidney failure, unspecified; E87.20 Acidosis, unspecified; Z68.42 Body mass index [BMI] 45.0-49.9, adult; E87.1 Hypo-osmolality and hyponatremia; F43.10 Post-traumatic stress disorder, unspecified; F32.A Depression, unspecified; E87.6 Hypokalemia; E66.01 Morbid (severe) obesity due to excess calories; N18.30 Chronic kidney disease, stage 3 unspecified; I12.9 Hypertensive chronic kidney disease with stage 1 through stage 4 chronic kidney disease, or unspecified chronic kidney disease; E83.42 Hypomagnesemia; F41.1 Generalized anxiety disorder; Z79.899 Other long term (current) drug therapy; Z91.148 Patient's other noncompliance with medication regimen for other reason
CPT/HCPCS: 36415; 70450; 71045; 74176; 80048; 80053; 80306; 80307; 81001; 82550; 82805; 83036; 83605; 83690; 83735; 84100; 84443; 84484; 85025; 87040; 87086; 93005; J0692; J2060; J2270; J3490; Q0162